=== PATIENT | female | born 1955 | race African-American/Black ===

== ENCOUNTER 2021-08-16 03:39 | Inpatient (IN) | payer MEDICAID ==
[~2021-08-16] VITALS: Ht 170.2 cm; Wt 108.9 kg
[2021-08-16 06:03] LABS: BASOPHILS % 0.9 % (0.0-2.0); EOSINOPHILS % 0.8 % (0.0-5.0); HEMATOCRIT. 36.8 % (36.0-48.0); LYMPHOCYTES % 26.5 % (20.0-50.0); MEAN CORPUSCULAR HEMOGLOBIN 27.6 pg (28.0-32.0); MEAN CORPUSCULAR VOLUME 84.7 fL (81.0-99.0); MEAN PLATELET VOLUME 8.1 fl (7.4-10.4); NEUTROPHILS % 66.8 % (40.0-76.0); PLATELET 487 x1000/uL (130-400); RED BLOOD CELL COUNT 4.34 mill/uL (4.2-5.4)
[2021-08-16 06:08] LABS: CHLORIDE 101 mEq/L (98-107)
[2021-08-16] MEDS ORDERED: MORPHINE SULFATE 10 MG/ML CPJ IV ONE ×2 (08:30→09:00)
[2021-08-16] MEDS ORDERED: MORPHINE SULFATE 10 MG/ML CPJ IV SCH (09:00)
[2021-08-16] MEDS ORDERED: SULFAMETHOXAZOLE/TRIMETHOPRIM 800/160MG TABLET PO ONE (11:15)
[2021-08-16] MEDS ORDERED: HYDROCODONE/ACETAMINOPHEN 5/325MG TABLET PO ONE (12:00)
[2021-08-16] MEDS ORDERED: NALOXONE HCL 0.4MG/ML VIAL IV PRN (20:00)
[2021-08-16] MEDS ORDERED: MORPHINE SULFATE 2 MG/ML CPJ (NOT FOR IM USE) IV PRN (20:00)
[2021-08-17] VITALS: BP_SYST 169; BP_DIAS 76; BP_DIAS 79
[2021-08-17 04:00] VITALS: BP 152/67
[2021-08-17] MEDS ORDERED: HYDROCODONE/ACETAMINOPHEN 5/325MG TABLET PO PRN (05:15)
[2021-08-17] MEDS ORDERED: ONDANSETRON HCL 4MG/2ML INJ IV PRN (05:15)
[2021-08-17] MEDS ORDERED: DEXTROSE 50% WATER 50ML SYRINGE IV PRN (05:15)
[2021-08-17] MEDS: MORPHINE SULFATE 2 MG/ML CPJ (NOT FOR IM USE) IV PRN ×4 (06:12→21:45)
[2021-08-17] MEDS: BLOOD SUGAR DIAGNOSTIC STRIP TEST SCH ×4 (06:12→21:58)
[2021-08-17] MEDS ORDERED: SULF-299 PO (06:52)
[2021-08-17] MEDS ORDERED: AMLO10TA80 PO (06:52)
[2021-08-17] MEDS ORDERED: ARIP15TA14 PO (06:52)
[2021-08-17] MEDS ORDERED: LIRA0.6P2 SUBCUT (06:52)
[2021-08-17] MEDS ORDERED: INSU100I24 SUBCUT (06:52)
[2021-08-17] MEDS ORDERED: LEVO150T8 PO (06:52)
[2021-08-17] MEDS ORDERED: METO-396 PO (06:52)
[2021-08-17] MEDS ORDERED: GABA800T97 PO (06:52)
[2021-08-17] MEDS ORDERED: ATOR40TA70 PO (06:52)
[2021-08-17 06:57] LABS: HEMATOCRIT 30.9 % (36.0-48.0); HEMOGLOBIN 10.1 g/dL (12.0-16.0); MEAN CORPUSCULAR HEMOGLOBIN 27.6 pg (28.0-32.0); MEAN CORPUSCULAR VOLUME 84.5 fL (81.0-99.0); PLATELET 385 x1000/uL (130-400); RED BLOOD CELL COUNT 3.66 mill/uL (4.2-5.4); RED CELL DISTRIBUTION WIDTH 15.7 % (11.6-14.6)
[2021-08-17 07:14] LABS: CHLORIDE 105 mEq/L (98-107)
[2021-08-17 08:00] VITALS: BP 145/75
[2021-08-17] MEDS: INSULIN LISPRO 100 UNITS/ML SUBCUT SCH ×4 (11:09→22:08)
[2021-08-17 12:00] VITALS: BP 168/76
[2021-08-17] MEDS: GABAPENTIN 300MG CAPSULE PO SCH ×2 (14:07→22:09)
[2021-08-17] MEDS: HYDROCODONE/ACETAMINOPHEN 10/325MG TABLET PO PRN ×2 (14:08→20:24)
[2021-08-17] MEDS: AMLODIPINE 10MG TABLET PO SCH (14:09)
[2021-08-17] MEDS: ARIPIPRAZOLE 5MG TABLET PO SCH (14:26)
[2021-08-17] MEDS: LEVOTHYROXINE SODIUM 150MCG TABLET PO SCH (15:00)
[2021-08-17 16:00] VITALS: BP 147/56
[2021-08-17 20:00] VITALS: BP 158/81
[2021-08-17] MEDS: ATORVASTATIN CALCIUM 40MG TABLET PO SCH (20:24)
[2021-08-17] MEDS: METOPROLOL TARTRATE 25MG TABLET PO SCH ×2 (21:00→21:57)
[2021-08-18] VITALS: BP 103/54
[2021-08-18 04:00] VITALS: BP 131/68
[2021-08-18] MEDS: GABAPENTIN 300MG CAPSULE PO SCH ×3 (06:15→21:23)
[2021-08-18] MEDS: HYDROCODONE/ACETAMINOPHEN 10/325MG TABLET PO PRN ×2 (06:28→12:59)
[2021-08-18] MEDS: BLOOD SUGAR DIAGNOSTIC STRIP TEST SCH ×4 (06:29→21:42)
[2021-08-18] MEDS: INSULIN LISPRO 100 UNITS/ML SUBCUT SCH ×4 (06:29→21:52)
[2021-08-18] MEDS: LEVOTHYROXINE SODIUM 150MCG TABLET PO SCH (06:31)
[2021-08-18 08:00] VITALS: BP 136/73
[2021-08-18] MEDS: POLYETHYLENE GLYCOL 3350 (17GM) 1 DOSE PACK PO SCH (08:48)
[2021-08-18] MEDS: DOCUSATE SODIUM 100MG CAPSULE PO SCH (08:58)
[2021-08-18] MEDS: ARIPIPRAZOLE 5MG TABLET PO SCH (08:58)
[2021-08-18] MEDS: METOPROLOL TARTRATE 25MG TABLET PO SCH ×2 (09:01→21:23)
[2021-08-18] MEDS: AMLODIPINE 10MG TABLET PO SCH (09:02)
[2021-08-18 09:28] LABS: CLARITY URINE CLEAR (CLEAR); COLOR URINE YELLOW (YELLOW); KETONES URINE NEGATIVE (NEGATIVE); LEUKOCYTE ESTERASE URINE NEGATIVE (NEGATIVE); NITRITE URINE NEGATIVE (NEGATIVE); OCCULT BLOOD URINE NEGATIVE (NEGATIVE); PH URINE 5.5 (4.5-8.0); PROTEIN URINE 3+ (NEGATIVE); SPECIFIC GRAVITY URINE 1.011 (1.005-1.030); UROBILINOGEN URINE 0.2 E.U./dL (0.2-1.0)
[2021-08-18] MEDS: MORPHINE SULFATE 2 MG/ML CPJ (NOT FOR IM USE) IV PRN ×3 (11:33→21:26)
[2021-08-18 12:00] VITALS: BP 133/70
[2021-08-18] MEDS ORDERED: OXYB5TAB17 PO (15:41)
[2021-08-18 16:00] VITALS: BP 165/78
[2021-08-18 16:15] LABS: PROTHROMBIN TIME 10.4 sec (9.6-11.0)
[2021-08-18] MEDS ORDERED: REGADENOSON 0.4 MG/5 ML IV NR (17:00)
[2021-08-18] MEDS ORDERED: IPRATROPIUM/ALBUTEROL 0.5-3(2.5)MG/3ML NEB HHN PRN (17:30)
[2021-08-18 20:00] VITALS: BP 169/69
[2021-08-18] MEDS: ATORVASTATIN CALCIUM 40MG TABLET PO SCH (21:23)
[2021-08-18] MEDS: INSULIN GLARGINE 100 UNITS/ML SUBCUT SCH (23:49)
[2021-08-19] VITALS: BP 145/60
[2021-08-19] MEDS: MORPHINE SULFATE 2 MG/ML CPJ (NOT FOR IM USE) IV PRN ×2 (02:03→22:09)
[2021-08-19 04:00] VITALS: BP 145/84
[2021-08-19] MEDS: GABAPENTIN 300MG CAPSULE PO SCH ×3 (06:41→21:59)
[2021-08-19] MEDS: LEVOTHYROXINE SODIUM 150MCG TABLET PO SCH (06:45)
[2021-08-19] MEDS: HYDROCODONE/ACETAMINOPHEN 10/325MG TABLET PO PRN ×2 (06:46→15:30)
[2021-08-19 06:53] LABS: BASOPHILS % 0.4 % (0.0-2.0); EOSINOPHILS % 4.5 % (0.0-5.0); HEMOGLOBIN. 9.8 g/dL (12.0-16.0); LYMPHOCYTES % 36.4 % (20.0-50.0); MEAN CORPUSCULAR HEMOGLOBIN 27.6 pg (28.0-32.0); MEAN CORPUSCULAR VOLUME 84.1 fL (81.0-99.0); MEAN PLATELET VOLUME 7.7 fl (7.4-10.4); NEUTROPHILS % 49.7 % (40.0-76.0); PLATELET 385 x1000/uL (130-400); RED BLOOD CELL COUNT 3.56 mill/uL (4.2-5.4); RED CELL DISTRIBUTION WIDTH 15.1 % (11.6-14.6)
[2021-08-19] MEDS: BLOOD SUGAR DIAGNOSTIC STRIP TEST SCH ×4 (07:00→21:37)
[2021-08-19] MEDS: INSULIN LISPRO 100 UNITS/ML SUBCUT SCH ×3 (07:50→22:02)
[2021-08-19 08:00] VITALS: BP 180/82
[2021-08-19] MEDS: ARIPIPRAZOLE 5MG TABLET PO SCH (08:41)
[2021-08-19] MEDS: METOPROLOL TARTRATE 25MG TABLET PO SCH ×2 (08:42→22:00)
[2021-08-19] MEDS: AMLODIPINE 10MG TABLET PO SCH (08:54)
[2021-08-19] MEDS: POLYETHYLENE GLYCOL 3350 (17GM) 1 DOSE PACK PO SCH (09:00)
[2021-08-19] MEDS: DOCUSATE SODIUM 100MG CAPSULE PO SCH (09:00)
[2021-08-19 09:13] LABS: BG CARBOXYHEMOGLOBIN 0.1 % (0.5-1.5); BG DEOXYHEMOGLOBIN 4.5 % (0.0-5.0); BG FRACTION INSPIRED OXYGEN 21; BG HCO3 ACT 25.4 mmol/L (22.0-26.0); BG METHEMOGLOBIN 0.2 % (0.0-1.5); BG OXYGEN SATURATION 95.5 % (92.0-98.5); BG OXYHEMOGLOBIN 95.2 % (94.0-97.0); BG PCO2 39.5 mmHg (35.0-45.0); BG PH 7.426 (7.350-7.450); BG PO2 77.9 mmHg (75.0-100.0); BG SAMPLE SITE RIGHT RADIAL; BG TOTAL HEMOGLOBIN 10.4 g/dL (12.0-18.0); BG VENT MODE ROOM AIR
[2021-08-19] MEDS: CLONIDINE 0.1MG TABLET PO PRN (16:12)
[2021-08-19 16:13] VITALS: BP 177/72
[2021-08-19 20:00] VITALS: BP 148/62
[2021-08-19] MEDS: ATORVASTATIN CALCIUM 40MG TABLET PO SCH (21:59)
[2021-08-19] MEDS: INSULIN GLARGINE 100 UNITS/ML SUBCUT SCH (22:03)
[2021-08-20] VITALS (27 sets, daily range): BP systolic 114–181; BP diastolic 51–83
[2021-08-20] MEDS: LEVOTHYROXINE SODIUM 150MCG TABLET PO SCH (06:18)
[2021-08-20] MEDS: GABAPENTIN 300MG CAPSULE PO SCH ×3 (06:18→20:52)
[2021-08-20] MEDS: MORPHINE SULFATE 2 MG/ML CPJ (NOT FOR IM USE) IV PRN ×2 (06:29→12:23)
[2021-08-20] MEDS: BLOOD SUGAR DIAGNOSTIC STRIP TEST SCH ×4 (07:01→23:12)
[2021-08-20] MEDS: METOPROLOL TARTRATE 25MG TABLET PO SCH ×2 (08:42→20:52)
[2021-08-20] MEDS: AMLODIPINE 10MG TABLET PO SCH (08:42)
[2021-08-20] MEDS: POLYETHYLENE GLYCOL 3350 (17GM) 1 DOSE PACK PO SCH (08:43)
[2021-08-20] MEDS: DOCUSATE SODIUM 100MG CAPSULE PO SCH (08:43)
[2021-08-20] MEDS: ARIPIPRAZOLE 5MG TABLET PO SCH (09:00)
[2021-08-20 12:05] LABS: BASOPHILS % 0.7 % (0.0-2.0); EOSINOPHILS % 3.5 % (0.0-5.0); HEMATOCRIT. 29.5 % (36.0-48.0); HEMOGLOBIN. 9.6 g/dL (12.0-16.0); LYMPHOCYTES % 35.4 % (20.0-50.0); MEAN CORPUSCULAR HEMOGLOBIN 27.4 pg (28.0-32.0); MEAN CORPUSCULAR VOLUME 84.2 fL (81.0-99.0); MEAN PLATELET VOLUME 8.1 fl (7.4-10.4); MONOCYTES % 8.5 % (2.0-8.0); NEUTROPHILS % 51.9 % (40.0-76.0); PLATELET 359 x1000/uL (130-400); RED BLOOD CELL COUNT 3.51 mill/uL (4.2-5.4); RED CELL DISTRIBUTION WIDTH 15.4 % (11.6-14.6)
[2021-08-20] MEDS ORDERED: THROMBIN (BOVINE) 5000 UNITS/VIAL TOP ONE (13:06)
[2021-08-20] MEDS ORDERED: LIDOCAINE HCL/EPINEPHRINE 1%-EPI 1:100,000 20 ML VIAL ONE (13:07)
[2021-08-20] MEDS ORDERED: GENTAMICIN SULF 40MG/ML 2ML VIAL ONE (13:07)
[2021-08-20] MEDS ORDERED: SUCCINYLCHOLINE CHLORIDE 200MG/10ML IV ONE (13:50)
[2021-08-20] MEDS ORDERED: ROCURONIUM BROMIDE 10MG/ML VIAL 5ML IV ONE ×2 (13:50→15:04)
[2021-08-20] MEDS ORDERED: DEXAMETHASONE 4MG/ML 1ML VIAL ONE (13:50)
[2021-08-20] MEDS ORDERED: CEFAZOLIN SODIUM 1000MG/VIAL ONE (13:50)
[2021-08-20] MEDS ORDERED: ONDANSETRON HCL 4MG/2ML INJ ONE (13:50)
[2021-08-20] MEDS ORDERED: LIDOCAINE HCL 1% 10 MG/ML 10ML VIAL ONE (13:50)
[2021-08-20] MEDS ORDERED: NEOSTIGMINE METHYLSULFATE 1MG/ML 10 ML VIAL ONE (13:51)
[2021-08-20] MEDS ORDERED: GLYCOPYRROLATE 0.2 MG/ML 2ML VIAL ONE ×2 (13:51)
[2021-08-20] MEDS ORDERED: PROPOFOL 200MG/20ML VIAL IV ONE (13:51)
[2021-08-20] MEDS ORDERED: MIDAZOLAM HCL 2 MG/2 ML VIAL ONE (13:52)
[2021-08-20] MEDS ORDERED: FENTANYL CITRATE/PF 50MCG/ML 2ML VIAL ONE (13:52)
[2021-08-20] MEDS ORDERED: CLINDAMYCIN 900 MG PREMIX 50 ML IV ONE (14:18)
[2021-08-20] MEDS ORDERED: METOPROLOL TARTRATE 5MG/5ML VIAL IV ONE (16:16)
[2021-08-20] MEDS ORDERED: HYDRALAZINE 20MG/ML VIAL ONE (16:16)
[2021-08-20] MEDS: MORPHINE SULFATE 4 MG/ML CPJ (NOT FOR IM USE) IV PRN ×4 (17:02→23:35)
[2021-08-20] MEDS: NICARDIPINE 100 MG in SODIUM CHLORIDE 0.9% 60 ML IV PRN (17:02)
[2021-08-20] MEDS: DEXT 5%/LACTATED RINGERS 1,000 ML IV SCH (17:02)
[2021-08-20] MEDS: CLINDAMYCIN 300 MG in DEXTROSE 5% WATER 50 ML IV SCH (17:04)
[2021-08-20] MEDS: DEXAMETHASONE 4MG/ML 1ML VIAL IV SCH ×2 (17:20→23:35)
[2021-08-20] MEDS: INSULIN LISPRO 100 UNITS/ML SUBCUT SCH ×2 (17:42→23:37)
[2021-08-20] MEDS ORDERED: LABETALOL 5MG/ML SYR 20 MG/4 ML SYRINGE IV PRN ×2 (19:30→19:45)
[2021-08-20] MEDS: ATORVASTATIN CALCIUM 40MG TABLET PO SCH (20:52)
[2021-08-20] MEDS: INSULIN GLARGINE 100 UNITS/ML SUBCUT SCH (21:10)
[2021-08-21] VITALS (95 sets, daily range): BP systolic 64–160; BP diastolic 32–85
[2021-08-21] MEDS: NICARDIPINE 100 MG in SODIUM CHLORIDE 0.9% 60 ML IV PRN ×4 (00:03→21:24)
[2021-08-21] MEDS: CLINDAMYCIN 300 MG in DEXTROSE 5% WATER 50 ML IV SCH ×3 (01:17→17:38)
[2021-08-21] MEDS: MORPHINE SULFATE 4 MG/ML CPJ (NOT FOR IM USE) IV PRN ×6 (02:20→22:25)
[2021-08-21] MEDS: BLOOD SUGAR DIAGNOSTIC STRIP TEST SCH ×3 (05:18→17:34)
[2021-08-21] MEDS: DEXAMETHASONE 4MG/ML 1ML VIAL IV SCH ×3 (05:35→17:38)
[2021-08-21] MEDS: INSULIN LISPRO 100 UNITS/ML SUBCUT SCH ×6 (05:35→23:55)
[2021-08-21] MEDS: GABAPENTIN 300MG CAPSULE PO SCH ×4 (06:00→21:41)
[2021-08-21] MEDS: LEVOTHYROXINE SODIUM 150MCG TABLET PO SCH (06:13)
[2021-08-21] MEDS: DEXT 5%/LACTATED RINGERS 1,000 ML IV SCH ×3 (08:20→21:43)
[2021-08-21] MEDS: ARIPIPRAZOLE 5MG TABLET PO SCH (09:00)
[2021-08-21] MEDS: AMLODIPINE 10MG TABLET PO SCH (09:00)
[2021-08-21] MEDS: DOCUSATE SODIUM 100MG CAPSULE PO SCH (09:00)
[2021-08-21] MEDS: METOPROLOL TARTRATE 25MG TABLET PO SCH ×2 (09:00→21:42)
[2021-08-21] MEDS: POLYETHYLENE GLYCOL 3350 (17GM) 1 DOSE PACK PO SCH (09:00)
[2021-08-21] MEDS ORDERED: BISACODYL 5MG TABLET PO PRN (09:15)
[2021-08-21] MEDS: HYDRALAZINE 20MG/ML VIAL IV PRN (11:27)
[2021-08-21] MEDS: INSULIN GLARGINE 100 UNITS/ML SUBCUT SCH ×2 (12:24→21:58)
[2021-08-21] MEDS: HYDROCODONE/ACETAMINOPHEN 10/325MG TABLET PO PRN (13:57)
[2021-08-21] MEDS: CARVEDILOL 6.25 MG TABLET PO SCH ×2 (13:58→21:42)
[2021-08-21] MEDS: ATORVASTATIN CALCIUM 40MG TABLET PO SCH (21:41)
[2021-08-22] VITALS (82 sets, daily range): BP systolic 75–197; BP diastolic 38–180
[2021-08-22] MEDS: BLOOD SUGAR DIAGNOSTIC STRIP TEST SCH ×5 (00:14→23:55)
[2021-08-22] MEDS: CLINDAMYCIN 300 MG in DEXTROSE 5% WATER 50 ML IV SCH ×3 (00:22→17:53)
[2021-08-22] MEDS: LEVOTHYROXINE SODIUM 150MCG TABLET PO SCH (05:34)
[2021-08-22] MEDS: GABAPENTIN 300MG CAPSULE PO SCH ×3 (05:35→21:49)
[2021-08-22 05:37] LABS: HEMATOCRIT. 28.7 % (36.0-48.0); HEMOGLOBIN. 9.4 g/dL (12.0-16.0); MEAN CORPUSCULAR HEMOGLOBIN 27.9 pg (28.0-32.0); MEAN CORPUSCULAR VOLUME 84.8 fL (81.0-99.0); MEAN PLATELET VOLUME 8.6 fl (7.4-10.4); PLATELET 360 x1000/uL (130-400); RED BLOOD CELL COUNT 3.38 mill/uL (4.2-5.4); RED CELL DISTRIBUTION WIDTH 15.5 % (11.6-14.6)
[2021-08-22] MEDS: INSULIN LISPRO 100 UNITS/ML SUBCUT SCH ×8 (06:01→23:58)
[2021-08-22] MEDS: MORPHINE SULFATE 4 MG/ML CPJ (NOT FOR IM USE) IV PRN ×5 (06:43→22:50)
[2021-08-22] MEDS: HYDRALAZINE 20MG/ML VIAL IV PRN (06:44)
[2021-08-22] MEDS: NICARDIPINE 100 MG in SODIUM CHLORIDE 0.9% 60 ML IV PRN (07:15)
[2021-08-22] MEDS: DEXT 5%/LACTATED RINGERS 1,000 ML IV SCH ×2 (08:42→17:55)
[2021-08-22] MEDS: AMLODIPINE 10MG TABLET PO SCH (08:43)
[2021-08-22] MEDS: DOCUSATE SODIUM 100MG CAPSULE PO SCH (08:43)
[2021-08-22] MEDS: CARVEDILOL 6.25 MG TABLET PO SCH ×2 (08:43→21:50)
[2021-08-22] MEDS: ARIPIPRAZOLE 5MG TABLET PO SCH (08:44)
[2021-08-22] MEDS: METOPROLOL TARTRATE 25MG TABLET PO SCH ×2 (08:44→21:51)
[2021-08-22] MEDS: POLYETHYLENE GLYCOL 3350 (17GM) 1 DOSE PACK PO SCH (11:29)
[2021-08-22] MEDS: INSULIN GLARGINE 100 UNITS/ML SUBCUT SCH ×2 (11:30→23:58)
[2021-08-22 11:32] LABS: PLATELET ESTIMATE NORMAL
[2021-08-22] MEDS: ATORVASTATIN CALCIUM 40MG TABLET PO SCH (21:49)
[2021-08-23] VITALS: BP 117/51
[2021-08-23 04:00] VITALS: BP 122/62
[2021-08-23] MEDS: DEXT 5%/LACTATED RINGERS 1,000 ML IV SCH ×2 (04:40→13:14)
[2021-08-23] MEDS: MORPHINE SULFATE 4 MG/ML CPJ (NOT FOR IM USE) IV PRN ×5 (04:42→21:40)
[2021-08-23] MEDS: GABAPENTIN 300MG CAPSULE PO SCH ×3 (06:03→21:08)
[2021-08-23] MEDS: LEVOTHYROXINE SODIUM 150MCG TABLET PO SCH (06:04)
[2021-08-23] MEDS: BLOOD SUGAR DIAGNOSTIC STRIP TEST SCH ×3 (06:04→17:10)
[2021-08-23] MEDS: INSULIN LISPRO 100 UNITS/ML SUBCUT SCH ×6 (06:05→17:28)
[2021-08-23 08:00] VITALS: BP 122/56
[2021-08-23 08:18] LABS: BASOPHILS % 0.3 % (0.0-2.0); HEMATOCRIT. 26.4 % (36.0-48.0); MEAN CORPUSCULAR HEMOGLOBIN 26.6 pg (28.0-32.0); MEAN CORPUSCULAR VOLUME 87.6 fL (81.0-99.0); MEAN PLATELET VOLUME 8.9 fl (7.4-10.4); MONOCYTES % 4.9 % (2.0-8.0); NEUTROPHILS % 80.8 % (40.0-76.0); PLATELET 57 x1000/uL (130-400); RED BLOOD CELL COUNT 3.01 mill/uL (4.2-5.4); RED CELL DISTRIBUTION WIDTH 15.6 % (11.6-14.6)
[2021-08-23] MEDS: INSULIN GLARGINE 100 UNITS/ML SUBCUT SCH ×2 (09:31→21:12)
[2021-08-23] MEDS: METOPROLOL TARTRATE 25MG TABLET PO SCH ×2 (09:33→20:50)
[2021-08-23] MEDS: DOCUSATE SODIUM 100MG CAPSULE PO SCH (09:33)
[2021-08-23] MEDS: AMLODIPINE 10MG TABLET PO SCH (09:33)
[2021-08-23] MEDS: CARVEDILOL 6.25 MG TABLET PO SCH ×2 (09:34→20:50)
[2021-08-23] MEDS: ARIPIPRAZOLE 5MG TABLET PO SCH (09:34)
[2021-08-23] MEDS: POLYETHYLENE GLYCOL 3350 (17GM) 1 DOSE PACK PO SCH (09:36)
[2021-08-23 12:00] VITALS: BP 124/55
[2021-08-23 16:00] VITALS: BP 142/57
[2021-08-23 20:00] VITALS: BP 130/80
[2021-08-23] MEDS: ATORVASTATIN CALCIUM 40MG TABLET PO SCH (20:50)
[2021-08-23] MEDS ORDERED: HYDRALAZINE 10 MG in SODIUM CHLORIDE 0.9% 49.5 ML IV PRN (23:30)
[2021-08-24] VITALS: BP 157/68
[2021-08-24] MEDS: INSULIN LISPRO 100 UNITS/ML SUBCUT SCH ×8 (00:02→18:27)
[2021-08-24] MEDS: BLOOD SUGAR DIAGNOSTIC STRIP TEST SCH ×4 (00:03→18:27)
[2021-08-24] MEDS: DEXT 5%/LACTATED RINGERS 1,000 ML IV SCH ×3 (00:15→20:15)
[2021-08-24] MEDS: MORPHINE SULFATE 4 MG/ML CPJ (NOT FOR IM USE) IV PRN (00:31)
[2021-08-24 04:00] VITALS: BP 141/64
[2021-08-24] MEDS: GABAPENTIN 300MG CAPSULE PO SCH ×3 (05:59→23:47)
[2021-08-24] MEDS: LEVOTHYROXINE SODIUM 150MCG TABLET PO SCH (06:33)
[2021-08-24 08:00] VITALS: BP 171/91
[2021-08-24] MEDS ORDERED: HYDROCODONE/ACETAMINOPHEN 5/325MG TABLET PO PRN (08:30)
[2021-08-24] MEDS: POLYETHYLENE GLYCOL 3350 (17GM) 1 DOSE PACK PO SCH (09:00)
[2021-08-24] MEDS ORDERED: MORPHINE SULFATE 4 MG/ML CPJ (NOT FOR IM USE) IV PRN ×2 (09:00→11:45)
[2021-08-24] MEDS: AMLODIPINE 10MG TABLET PO SCH ×2 (09:26→18:11)
[2021-08-24] MEDS: DOCUSATE SODIUM 100MG CAPSULE PO SCH (09:26)
[2021-08-24] MEDS: METOPROLOL TARTRATE 25MG TABLET PO SCH (09:27)
[2021-08-24] MEDS: ARIPIPRAZOLE 5MG TABLET PO SCH (09:28)
[2021-08-24] MEDS: CARVEDILOL 6.25 MG TABLET PO SCH ×2 (09:28→23:46)
[2021-08-24] MEDS: INSULIN GLARGINE 100 UNITS/ML SUBCUT SCH ×2 (09:42→23:59)
[2021-08-24] MEDS: HYDROCODONE/ACETAMINOPHEN 10/325MG TABLET PO PRN ×2 (11:07→23:49)
[2021-08-24] MEDS ORDERED: NALOXONE HCL 0.4 MG/ML 1ML VIAL IV PRN (11:45)
[2021-08-24] MEDS ORDERED: TRAMADOL 50MG TABLET PO PRN (11:45)
[2021-08-24 16:00] VITALS: BP 153/86
[2021-08-24] MEDS: HYDRALAZINE HCL 25MG TABLET PO SCH ×2 (18:11→23:47)
[2021-08-24] MEDS: MORPHINE SULFATE 2 MG/ML CPJ (NOT FOR IM USE) IV PRN (18:12)
[2021-08-24 20:00] VITALS: BP 163/73
[2021-08-24] MEDS: ATORVASTATIN CALCIUM 40MG TABLET PO SCH (23:46)
[2021-08-25] VITALS: BP 176/84
[2021-08-25] MEDS: MORPHINE SULFATE 2 MG/ML CPJ (NOT FOR IM USE) IV PRN ×5 (00:14→21:47)
[2021-08-25] MEDS: HYDROCODONE/ACETAMINOPHEN 10/325MG TABLET PO PRN ×2 (01:23→08:40)
[2021-08-25 04:00] VITALS: BP 126/75
[2021-08-25] MEDS: HYDRALAZINE HCL 25MG TABLET PO SCH ×3 (05:31→21:48)
[2021-08-25] MEDS: BLOOD SUGAR DIAGNOSTIC STRIP TEST SCH ×5 (05:31→21:00)
[2021-08-25] MEDS: GABAPENTIN 300MG CAPSULE PO SCH ×3 (05:31→21:47)
[2021-08-25] MEDS: INSULIN LISPRO 100 UNITS/ML SUBCUT SCH ×10 (06:00→21:00)
[2021-08-25] MEDS: DEXT 5%/LACTATED RINGERS 1,000 ML IV SCH (07:05)
[2021-08-25] MEDS: DOCUSATE SODIUM 100MG CAPSULE PO SCH (07:59)
[2021-08-25] MEDS: AMLODIPINE 10MG TABLET PO SCH ×2 (07:59→17:10)
[2021-08-25] MEDS: LEVOTHYROXINE SODIUM 150MCG TABLET PO SCH (07:59)
[2021-08-25 08:00] VITALS: BP 175/69
[2021-08-25] MEDS: POLYETHYLENE GLYCOL 3350 (17GM) 1 DOSE PACK PO SCH (08:00)
[2021-08-25] MEDS: CARVEDILOL 6.25 MG TABLET PO SCH ×2 (08:00→21:48)
[2021-08-25] MEDS: ARIPIPRAZOLE 5MG TABLET PO SCH (08:00)
[2021-08-25] MEDS: INSULIN GLARGINE 100 UNITS/ML SUBCUT SCH ×2 (09:09→22:27)
[2021-08-25 12:00] VITALS: BP 183/78
[2021-08-25] MEDS: CLONIDINE 0.1MG TABLET PO PRN (14:16)
[2021-08-25 16:00] VITALS: BP 144/71
[2021-08-25 16:39] LABS: HEMOGLOBIN 9.5 g/dL (12.0-16.0); MEAN CORPUSCULAR HEMOGLOBIN 27.4 pg (28.0-32.0); MEAN CORPUSCULAR VOLUME 83.5 fL (81.0-99.0); PLATELET 361 x1000/uL (130-400); RED BLOOD CELL COUNT 3.48 mill/uL (4.2-5.4); RED CELL DISTRIBUTION WIDTH 15.3 % (11.6-14.6)
[2021-08-25 20:00] VITALS: BP 180/79
[2021-08-25] MEDS: ATORVASTATIN CALCIUM 40MG TABLET PO SCH (21:48)
[2021-08-26] VITALS: BP 143/51
[2021-08-26 04:00] VITALS: BP 154/59
[2021-08-26] MEDS: INSULIN LISPRO 100 UNITS/ML SUBCUT SCH ×8 (06:00→21:57)
[2021-08-26] MEDS: HYDRALAZINE HCL 25MG TABLET PO SCH ×3 (06:19→23:55)
[2021-08-26] MEDS: GABAPENTIN 300MG CAPSULE PO SCH ×3 (06:19→23:52)
[2021-08-26] MEDS: MORPHINE SULFATE 2 MG/ML CPJ (NOT FOR IM USE) IV PRN ×4 (06:19→21:49)
[2021-08-26] MEDS: LEVOTHYROXINE SODIUM 150MCG TABLET PO SCH (06:20)
[2021-08-26] MEDS: BLOOD SUGAR DIAGNOSTIC STRIP TEST SCH ×4 (06:45→21:00)
[2021-08-26 08:00] VITALS: BP 144/67
[2021-08-26] MEDS: ARIPIPRAZOLE 5MG TABLET PO SCH (08:25)
[2021-08-26] MEDS: DOCUSATE SODIUM 100MG CAPSULE PO SCH (08:25)
[2021-08-26] MEDS: CARVEDILOL 6.25 MG TABLET PO SCH ×2 (08:25→21:50)
[2021-08-26] MEDS: AMLODIPINE 10MG TABLET PO SCH ×2 (08:26→16:22)
[2021-08-26] MEDS: POLYETHYLENE GLYCOL 3350 (17GM) 1 DOSE PACK PO SCH (08:26)
[2021-08-26] MEDS ORDERED: ACETAMINOPHEN 325MG TABLET PO PRN (08:30)
[2021-08-26] MEDS: INSULIN GLARGINE 100 UNITS/ML SUBCUT SCH (10:46)
[2021-08-26 12:00] VITALS: BP 130/64
[2021-08-26 12:08] LABS: BASOPHILS % 0.5 % (0.0-2.0); EOSINOPHILS % 1.5 % (0.0-5.0); HEMATOCRIT. 29.7 % (36.0-48.0); HEMOGLOBIN. 9.6 g/dL (12.0-16.0); LYMPHOCYTES % 16.5 % (20.0-50.0); MEAN CORPUSCULAR HEMOGLOBIN 27.3 pg (28.0-32.0); MEAN CORPUSCULAR VOLUME 84.5 fL (81.0-99.0); MEAN PLATELET VOLUME 8.6 fl (7.4-10.4); NEUTROPHILS % 72.5 % (40.0-76.0); PLATELET 344 x1000/uL (130-400); RED BLOOD CELL COUNT 3.51 mill/uL (4.2-5.4)
[2021-08-26 12:28] LABS: CHLORIDE 101 mEq/L (98-107)
[2021-08-26 15:06] LABS: CLARITY URINE CLEAR (CLEAR); COLOR URINE YELLOW (YELLOW); KETONES URINE NEGATIVE (NEGATIVE); LEUKOCYTE ESTERASE URINE NEGATIVE (NEGATIVE); NITRITE URINE NEGATIVE (NEGATIVE); OCCULT BLOOD URINE NEGATIVE (NEGATIVE); PH URINE 7.5 (4.5-8.0); PROTEIN URINE 2+ (NEGATIVE); UROBILINOGEN URINE 0.2 E.U./dL (0.2-1.0)
[2021-08-26 16:00] VITALS: BP 125/74
[2021-08-26] MEDS: HYDROCODONE/ACETAMINOPHEN 10/325MG TABLET PO PRN (18:20)
[2021-08-26] MEDS: ATORVASTATIN CALCIUM 40MG TABLET PO SCH (21:49)
[2021-08-27] VITALS: BP 127/60
[2021-08-27] MEDS: INSULIN GLARGINE 100 UNITS/ML SUBCUT SCH ×2 (00:28→09:44)
[2021-08-27] MEDS: INSULIN LISPRO 100 UNITS/ML SUBCUT SCH ×7 (01:00→18:20)
[2021-08-27] MEDS: HYDROCODONE/ACETAMINOPHEN 10/325MG TABLET PO PRN ×3 (01:29→14:02)
[2021-08-27] MEDS: LEVOTHYROXINE SODIUM 150MCG TABLET PO SCH (06:55)
[2021-08-27] MEDS: GABAPENTIN 300MG CAPSULE PO SCH ×2 (06:55→14:02)
[2021-08-27] MEDS: HYDRALAZINE HCL 25MG TABLET PO SCH ×2 (06:55→14:02)
[2021-08-27] MEDS: BLOOD SUGAR DIAGNOSTIC STRIP TEST SCH ×3 (07:34→17:27)
[2021-08-27] MEDS: POLYETHYLENE GLYCOL 3350 (17GM) 1 DOSE PACK PO SCH (07:54)
[2021-08-27] MEDS: ARIPIPRAZOLE 5MG TABLET PO SCH (07:55)
[2021-08-27] MEDS: DOCUSATE SODIUM 100MG CAPSULE PO SCH (07:55)
[2021-08-27] MEDS: CARVEDILOL 6.25 MG TABLET PO SCH (07:56)
[2021-08-27] MEDS: AMLODIPINE 10MG TABLET PO SCH ×2 (07:56→17:00)
[2021-08-27 08:00] VITALS: BP 157/58
[2021-08-27 12:00] VITALS: BP 124/51
[2021-08-27 13:07] LABS: BASOPHILS % 0.7 % (0.0-2.0); EOSINOPHILS % 1.9 % (0.0-5.0); HEMATOCRIT. 30.7 % (36.0-48.0); HEMOGLOBIN. 10.1 g/dL (12.0-16.0); LYMPHOCYTES % 19.3 % (20.0-50.0); MEAN CORPUSCULAR HEMOGLOBIN 27.7 pg (28.0-32.0); MEAN CORPUSCULAR VOLUME 84.7 fL (81.0-99.0); MEAN PLATELET VOLUME 8.6 fl (7.4-10.4); MONOCYTES % 9.5 % (2.0-8.0); NEUTROPHILS % 68.6 % (40.0-76.0); PLATELET 371 x1000/uL (130-400); RED BLOOD CELL COUNT 3.63 mill/uL (4.2-5.4); RED CELL DISTRIBUTION WIDTH 15.3 % (11.6-14.6)
[2021-08-27] MEDS ORDERED: LIDOCAINE HCL 1% 10 MG/ML 10ML VIAL ONE (14:27)
[2021-08-27] MEDS: MORPHINE SULFATE 2 MG/ML CPJ (NOT FOR IM USE) IV PRN (17:11)
[2021-08-27 18:37] VITALS: BP 117/52
== END 2021-08-27 19:10 | DRG 321 ==
LOC: ER 04:05 → 6WST 12:16 → ENRESERV 22:29 → 6EST 08-17 12:05 → MICUNO 08-20 16:50 → 6WST 08-22 21:10 → 6EST 08-23 22:25
PROVIDERS: ADMIT Internal Medicine; ATTEND Internal Medicine
PROC: 5A09357 Assistance with Respiratory Ventilation, Less than 24 Consecutive Hours, Continuous Positive Airway Pressure (ICD-10-PCS; 2021-08-18)
PROC: 0RG2071 Fusion of 2 or more Cervical Vertebral Joints with Autologous Tissue Substitute, Posterior Approach, Posterior Column, Open Approach (ICD-10-PCS; principal; 2021-08-20)
PROC: 01N10ZZ Release Cervical Nerve, Open Approach (ICD-10-PCS; 2021-08-20)
PROC: 02HV33Z Insertion of Infusion Device into Superior Vena Cava, Percutaneous Approach (ICD-10-PCS; 2021-08-27)
PROC: B518ZZA Fluoroscopy of Superior Vena Cava, Guidance (ICD-10-PCS; 2021-08-27)
PROC: B548ZZA Ultrasonography of Superior Vena Cava, Guidance (ICD-10-PCS; 2021-08-27)
DX: M48.02 Spinal stenosis, cervical region (principal); G82.50 Quadriplegia, unspecified; S32.10XA Unspecified fracture of sacrum, initial encounter for closed fracture; G99.2 Myelopathy in diseases classified elsewhere; E11.42 Type 2 diabetes mellitus with diabetic polyneuropathy; E11.22 Type 2 diabetes mellitus with diabetic chronic kidney disease; E11.610 Type 2 diabetes mellitus with diabetic neuropathic arthropathy; I50.32 Chronic diastolic (congestive) heart failure; I13.0 Hypertensive heart and chronic kidney disease with heart failure and stage 1 through stage 4 chronic kidney disease, or unspecified chronic kidney disease; S70.01XA Contusion of right hip, initial encounter; D64.9 Anemia, unspecified; E03.9 Hypothyroidism, unspecified; E11.65 Type 2 diabetes mellitus with hyperglycemia; E66.9 Obesity, unspecified; G89.29 Other chronic pain; M77.32 Calcaneal spur, left foot; N18.9 Chronic kidney disease, unspecified; M16.11 Unilateral primary osteoarthritis, right hip; I16.1 Hypertensive emergency; M47.26 Other spondylosis with radiculopathy, lumbar region; M48.061 Spinal stenosis, lumbar region without neurogenic claudication; M81.0 Age-related osteoporosis without current pathological fracture; E78.5 Hyperlipidemia, unspecified; G47.33 Obstructive sleep apnea (adult) (pediatric); J98.11 Atelectasis; E11.51 Type 2 diabetes mellitus with diabetic peripheral angiopathy without gangrene; Y93.01 Activity, walking, marching and hiking; Z20.822 Contact with and (suspected) exposure to COVID-19; W01.0XXA Fall on same level from slipping, tripping and stumbling without subsequent striking against object, initial encounter; I35.0 Nonrheumatic aortic (valve) stenosis; S90.935A Unspecified superficial injury of left lesser toe(s), initial encounter; Y92.090 Kitchen in other non-institutional residence as the place of occurrence of the external cause; Y99.8 Other external cause status; Z82.49 Family history of ischemic heart disease and other diseases of the circulatory system; Z89.422 Acquired absence of other left toe(s); Z79.4 Long term (current) use of insulin; Z88.0 Allergy status to penicillin; Z88.8 Allergy status to other drugs, medicaments and biological substances; Z79.899 Other long term (current) drug therapy; Z68.37 Body mass index [BMI] 37.0-37.9, adult
CPT/HCPCS: 36415; 36573; 36600; 71045; 72040; 72131; 72141; 72148; 73630; 73700; 76000; 78452; 80048; 80053; 81003; 82375; 82805; 82962; 83036; 84145; 85025; 85027; 86850; 86900; 87426; 88304; 88311; 93005; 93017; 93306; 93923; 94660; 95925; 95926; 95928; 95929; 97116; 97162; 97166; 97530; 99291; A9500; C1713; C1725; C1769; J0330; J0360; J0690; J1100; J1580; J1815; J2250; J2270; J2405; J2704; J2710; J2785; J3010; J3490; J7050; J7060; J7121; L0172

== ENCOUNTER 2021-08-27 20:22 | Inpatient (IN) | payer MEDICAID ==
[~2021-08-27] VITALS: Ht 171.4 cm; Wt 102.1 kg
[2021-08-27 20:00] VITALS: BP 162/72
[~2021-08-27 20:22] MED LIST: AMLO10TA80 PO; ARIP15TA14 PO; ATOR40TA70 PO; GABA800T97 PO; INSU100I24 SUBCUT; LEVO150T8 PO; LIRA0.6P2 SUBCUT; METO-396 PO; OXYB5TAB17 PO; SULF-299 PO
[2021-08-27] MEDS ORDERED: ONDANSETRON HCL 4MG/2ML INJ IV PRN (20:45)
[2021-08-27] MEDS ORDERED: CLONIDINE 0.1MG TABLET PO PRN (20:45)
[2021-08-27] MEDS ORDERED: HYDROCODONE/ACETAMINOPHEN 5/325MG TABLET PO PRN (20:45)
[2021-08-27] MEDS ORDERED: BISACODYL 5MG TABLET PO PRN (20:45)
[2021-08-27] MEDS ORDERED: DEXTROSE 50% WATER 50ML SYRINGE IV PRN (20:45)
[2021-08-27] MEDS ORDERED: NALOXONE HCL 0.4 MG/ML 1ML VIAL IV PRN ×2 (20:45)
[2021-08-27] MEDS ORDERED: ACETAMINOPHEN 325MG TABLET PO PRN (20:45)
[2021-08-27] MEDS ORDERED: IPRATROPIUM/ALBUTEROL 0.5-3(2.5)MG/3ML NEB HHN PRN (20:45)
[2021-08-27] MEDS ORDERED: INSULIN LISPRO 100 UNITS/ML SUBCUT SCH (21:00)
[2021-08-27] MEDS: INSULIN LISPRO 100 UNITS/ML SUBCUT SCH ×2 (21:00→23:25)
[2021-08-27] MEDS: GABAPENTIN 300MG CAPSULE PO SCH (21:32)
[2021-08-27] MEDS: CARVEDILOL 6.25 MG TABLET PO SCH (21:32)
[2021-08-27] MEDS: HYDRALAZINE HCL 25MG TABLET PO SCH (21:32)
[2021-08-27] MEDS: ATORVASTATIN CALCIUM 40MG TABLET PO SCH (21:32)
[2021-08-27] MEDS: MORPHINE SULFATE 2 MG/ML CPJ (NOT FOR IM USE) IV PRN (21:33)
[2021-08-27] MEDS: BLOOD SUGAR DIAGNOSTIC STRIP TEST SCH (21:40)
[2021-08-27] MEDS: INSULIN GLARGINE 100 UNITS/ML SUBCUT SCH (21:53)
[2021-08-27 22:45] VITALS: BP 148/68
[2021-08-27] MEDS: HYDRALAZINE 10 MG in SODIUM CHLORIDE 0.9% 49.5 ML IV PRN (23:06)
[2021-08-27] MEDS: HYDROCODONE/ACETAMINOPHEN 10/325MG TABLET PO PRN (23:37)
[2021-08-28] VITALS: BP 134/60
[2021-08-28] MEDS: GABAPENTIN 300MG CAPSULE PO SCH ×3 (05:44→21:29)
[2021-08-28] MEDS: HYDROCODONE/ACETAMINOPHEN 10/325MG TABLET PO PRN ×2 (05:44→15:55)
[2021-08-28] MEDS: HYDRALAZINE HCL 25MG TABLET PO SCH ×3 (05:44→21:28)
[2021-08-28 06:25] LABS: BASOPHILS % 0.6 % (0.0-2.0); EOSINOPHILS % 2.2 % (0.0-5.0); HEMATOCRIT. 26.4 % (36.0-48.0); HEMOGLOBIN. 8.6 g/dL (12.0-16.0); LYMPHOCYTES % 27.5 % (20.0-50.0); MEAN CORPUSCULAR HEMOGLOBIN 27.1 pg (28.0-32.0); MEAN CORPUSCULAR VOLUME 82.9 fL (81.0-99.0); MEAN PLATELET VOLUME 8.1 fl (7.4-10.4); MONOCYTES % 12.7 % (2.0-8.0); PLATELET 361 x1000/uL (130-400); RED BLOOD CELL COUNT 3.18 mill/uL (4.2-5.4); RED CELL DISTRIBUTION WIDTH 14.7 % (11.6-14.6)
[2021-08-28] MEDS: BLOOD SUGAR DIAGNOSTIC STRIP TEST SCH ×4 (06:28→21:29)
[2021-08-28] MEDS: INSULIN LISPRO 100 UNITS/ML SUBCUT SCH ×7 (06:28→21:38)
[2021-08-28] MEDS: LEVOTHYROXINE SODIUM 150MCG TABLET PO SCH (06:36)
[2021-08-28] MEDS: MORPHINE SULFATE 2 MG/ML CPJ (NOT FOR IM USE) IV PRN ×2 (07:18→12:49)
[2021-08-28 07:26] LABS: CHLORIDE 104 mEq/L (98-107)
[2021-08-28 08:00] VITALS: BP 143/60
[2021-08-28] MEDS: TRAMADOL 50MG TABLET PO PRN ×2 (10:15→18:06)
[2021-08-28] MEDS: AMLODIPINE 10MG TABLET PO SCH ×2 (10:15→18:06)
[2021-08-28] MEDS: ARIPIPRAZOLE 5MG TABLET PO SCH (10:15)
[2021-08-28] MEDS: DOCUSATE SODIUM 100MG CAPSULE PO SCH (10:16)
[2021-08-28] MEDS: CARVEDILOL 6.25 MG TABLET PO SCH ×2 (10:16→21:27)
[2021-08-28] MEDS: POLYETHYLENE GLYCOL 3350 (17GM) 1 DOSE PACK PO SCH (10:35)
[2021-08-28] MEDS: INSULIN GLARGINE 100 UNITS/ML SUBCUT SCH ×2 (10:35→23:03)
[2021-08-28 20:00] VITALS: BP 139/58
[2021-08-28] MEDS: ATORVASTATIN CALCIUM 40MG TABLET PO SCH (21:27)
[2021-08-29] MEDS: INSULIN LISPRO 100 UNITS/ML SUBCUT SCH ×8 (00:01→20:39)
[2021-08-29] MEDS: GABAPENTIN 300MG CAPSULE PO SCH ×3 (06:31→22:12)
[2021-08-29] MEDS: HYDRALAZINE HCL 25MG TABLET PO SCH ×3 (06:32→22:21)
[2021-08-29] MEDS: BLOOD SUGAR DIAGNOSTIC STRIP TEST SCH ×4 (06:32→20:17)
[2021-08-29] MEDS: LEVOTHYROXINE SODIUM 150MCG TABLET PO SCH (06:42)
[2021-08-29 07:46] LABS: BASOPHILS % 0.6 % (0.0-2.0); EOSINOPHILS % 2.4 % (0.0-5.0); HEMATOCRIT. 28.2 % (36.0-48.0); HEMOGLOBIN. 9.2 g/dL (12.0-16.0); LYMPHOCYTES % 24.6 % (20.0-50.0); MEAN CORPUSCULAR HEMOGLOBIN 27.3 pg (28.0-32.0); MEAN CORPUSCULAR VOLUME 83.7 fL (81.0-99.0); MEAN PLATELET VOLUME 8.5 fl (7.4-10.4); MONOCYTES % 13.4 % (2.0-8.0); PLATELET 394 x1000/uL (130-400); RED BLOOD CELL COUNT 3.37 mill/uL (4.2-5.4); RED CELL DISTRIBUTION WIDTH 15.1 % (11.6-14.6)
[2021-08-29 08:00] VITALS: BP 183/85
[2021-08-29 08:02] LABS: CHLORIDE 101 mEq/L (98-107)
[2021-08-29 08:17] LABS: TOTAL IRON BINDING CAPACITY 185 ug/dL (250-450)
[2021-08-29 08:37] LABS: FOLIC ACID (FOLATE) SERUM 7.6 ng/mL (>5.38)
[2021-08-29] MEDS: POLYETHYLENE GLYCOL 3350 (17GM) 1 DOSE PACK PO SCH (09:00)
[2021-08-29] MEDS: ARIPIPRAZOLE 5MG TABLET PO SCH (09:09)
[2021-08-29] MEDS: DOCUSATE SODIUM 100MG CAPSULE PO SCH (09:09)
[2021-08-29] MEDS: CARVEDILOL 6.25 MG TABLET PO SCH ×2 (09:09→20:17)
[2021-08-29] MEDS: HYDROCODONE/ACETAMINOPHEN 10/325MG TABLET PO PRN ×2 (09:09→16:42)
[2021-08-29] MEDS: AMLODIPINE 10MG TABLET PO SCH ×2 (09:10→16:41)
[2021-08-29] MEDS: INSULIN GLARGINE 100 UNITS/ML SUBCUT SCH ×2 (09:11→22:19)
[2021-08-29] MEDS: TRAMADOL 50MG TABLET PO PRN (13:21)
[2021-08-29] MEDS: FERROUS SULFATE 325MG TABLET PO SCH (16:41)
[2021-08-29 20:00] VITALS: BP 156/70
[2021-08-29] MEDS: ATORVASTATIN CALCIUM 40MG TABLET PO SCH (20:16)
[2021-08-29] MEDS: MORPHINE SULFATE 2 MG/ML CPJ (NOT FOR IM USE) IV PRN (20:19)
[2021-08-30] MEDS: INSULIN LISPRO 100 UNITS/ML SUBCUT SCH ×8 (01:33→21:00)
[2021-08-30] MEDS: TRAMADOL 50MG TABLET PO PRN ×2 (02:05→14:47)
[2021-08-30] MEDS: GABAPENTIN 300MG CAPSULE PO SCH ×3 (06:22→22:17)
[2021-08-30] MEDS: LEVOTHYROXINE SODIUM 150MCG TABLET PO SCH (06:34)
[2021-08-30] MEDS: HYDRALAZINE HCL 25MG TABLET PO SCH ×3 (06:35→22:00)
[2021-08-30] MEDS: BLOOD SUGAR DIAGNOSTIC STRIP TEST SCH ×4 (06:37→21:12)
[2021-08-30 08:00] VITALS: BP 168/78
[2021-08-30] MEDS: DOCUSATE SODIUM 100MG CAPSULE PO SCH (08:45)
[2021-08-30] MEDS: ASCORBIC ACID 500 MG TABLET PO SCH (08:45)
[2021-08-30] MEDS: MORPHINE SULFATE 2 MG/ML CPJ (NOT FOR IM USE) IV PRN ×2 (08:45→17:25)
[2021-08-30] MEDS: AMLODIPINE 10MG TABLET PO SCH ×2 (08:45→17:23)
[2021-08-30] MEDS: ARIPIPRAZOLE 5MG TABLET PO SCH (08:45)
[2021-08-30] MEDS: POLYETHYLENE GLYCOL 3350 (17GM) 1 DOSE PACK PO SCH (08:46)
[2021-08-30] MEDS: FERROUS SULFATE 325MG TABLET PO SCH ×3 (08:46→17:23)
[2021-08-30] MEDS: CARVEDILOL 6.25 MG TABLET PO SCH ×2 (08:46→21:00)
[2021-08-30] MEDS: INSULIN GLARGINE 100 UNITS/ML SUBCUT SCH ×2 (10:00→22:21)
[2021-08-30] MEDS: HYDRALAZINE 10 MG in SODIUM CHLORIDE 0.9% 49.5 ML IV PRN (12:28)
[2021-08-30] MEDS: HYDROCODONE/ACETAMINOPHEN 10/325MG TABLET PO PRN (12:28)
[2021-08-30] MEDS: DULOXETINE HCL 60MG DR CAPSULE PO SCH (14:47)
[2021-08-30] MEDS: OXYBUTYNIN CHLORIDE 5MG TABLET PO SCH ×2 (14:47→22:22)
[2021-08-30 20:00] VITALS: BP 109/52
[2021-08-30] MEDS: ATORVASTATIN CALCIUM 40MG TABLET PO SCH (21:07)
[2021-08-31] MEDS: INSULIN LISPRO 100 UNITS/ML SUBCUT SCH ×8 (06:00→20:38)
[2021-08-31] MEDS: LEVOTHYROXINE SODIUM 150MCG TABLET PO SCH (06:03)
[2021-08-31] MEDS: GABAPENTIN 300MG CAPSULE PO SCH ×3 (06:03→21:15)
[2021-08-31] MEDS: OXYBUTYNIN CHLORIDE 5MG TABLET PO SCH ×3 (06:04→21:18)
[2021-08-31] MEDS: HYDRALAZINE HCL 25MG TABLET PO SCH ×3 (06:05→21:04)
[2021-08-31] MEDS: TRAMADOL 50MG TABLET PO PRN ×2 (06:06→15:01)
[2021-08-31] MEDS: BLOOD SUGAR DIAGNOSTIC STRIP TEST SCH ×4 (06:07→20:37)
[2021-08-31 06:45] LABS: EOSINOPHILS % 1.9 % (0.0-5.0); HEMOGLOBIN. 8.2 g/dL (12.0-16.0); LYMPHOCYTES % 24.2 % (20.0-50.0); MEAN CORPUSCULAR HEMOGLOBIN 27.3 pg (28.0-32.0); MEAN CORPUSCULAR VOLUME 82.9 fL (81.0-99.0); MEAN PLATELET VOLUME 8.5 fl (7.4-10.4); MONOCYTES % 10.8 % (2.0-8.0); NEUTROPHILS % 62.1 % (40.0-76.0); PLATELET 362 x1000/uL (130-400); RED BLOOD CELL COUNT 3.01 mill/uL (4.2-5.4); RED CELL DISTRIBUTION WIDTH 14.8 % (11.6-14.6)
[2021-08-31 08:00] VITALS: BP 111/73
[2021-08-31] MEDS: MORPHINE SULFATE 2 MG/ML CPJ (NOT FOR IM USE) IV PRN ×2 (08:36→18:11)
[2021-08-31] MEDS: POLYETHYLENE GLYCOL 3350 (17GM) 1 DOSE PACK PO SCH (10:18)
[2021-08-31] MEDS: DOCUSATE SODIUM 100MG CAPSULE PO SCH (10:19)
[2021-08-31] MEDS: AMLODIPINE 10MG TABLET PO SCH ×2 (10:19→18:11)
[2021-08-31] MEDS: FERROUS SULFATE 325MG TABLET PO SCH ×3 (10:19→18:11)
[2021-08-31] MEDS: DULOXETINE HCL 60MG DR CAPSULE PO SCH (10:19)
[2021-08-31] MEDS: ASCORBIC ACID 500 MG TABLET PO SCH (10:19)
[2021-08-31] MEDS: ARIPIPRAZOLE 5MG TABLET PO SCH (10:19)
[2021-08-31] MEDS: CARVEDILOL 6.25 MG TABLET PO SCH ×2 (10:20→21:16)
[2021-08-31] MEDS: INSULIN GLARGINE 100 UNITS/ML SUBCUT SCH ×2 (10:25→21:22)
[2021-08-31] MEDS: HYDROCODONE/ACETAMINOPHEN 10/325MG TABLET PO PRN (12:30)
[2021-08-31 20:00] VITALS: BP 118/47
[2021-08-31] MEDS: ATORVASTATIN CALCIUM 40MG TABLET PO SCH (21:15)
[2021-09-01] MEDS: HYDRALAZINE HCL 25MG TABLET PO SCH ×2 (05:20→14:00)
[2021-09-01] MEDS: OXYBUTYNIN CHLORIDE 5MG TABLET PO SCH ×2 (05:31→14:20)
[2021-09-01] MEDS: GABAPENTIN 300MG CAPSULE PO SCH ×2 (05:31→14:21)
[2021-09-01] MEDS: LEVOTHYROXINE SODIUM 150MCG TABLET PO SCH (05:32)
[2021-09-01] MEDS: BLOOD SUGAR DIAGNOSTIC STRIP TEST SCH ×3 (07:00→17:00)
[2021-09-01] MEDS: INSULIN LISPRO 100 UNITS/ML SUBCUT SCH ×5 (07:00→18:00)
[2021-09-01 08:00] VITALS: BP 114/44
[2021-09-01] MEDS: DULOXETINE HCL 60MG DR CAPSULE PO SCH (09:01)
[2021-09-01] MEDS: ASCORBIC ACID 500 MG TABLET PO SCH (09:01)
[2021-09-01] MEDS: FERROUS SULFATE 325MG TABLET PO SCH ×3 (09:01→18:10)
[2021-09-01] MEDS: DOCUSATE SODIUM 100MG CAPSULE PO SCH (09:01)
[2021-09-01] MEDS: HYDROCODONE/ACETAMINOPHEN 10/325MG TABLET PO PRN (09:02)
[2021-09-01] MEDS: ARIPIPRAZOLE 5MG TABLET PO SCH (09:02)
[2021-09-01] MEDS: POLYETHYLENE GLYCOL 3350 (17GM) 1 DOSE PACK PO SCH (09:02)
[2021-09-01] MEDS: TRAMADOL 50MG TABLET PO PRN (11:44)
[2021-09-01] MEDS: CARVEDILOL 6.25 MG TABLET PO SCH (11:45)
[2021-09-01] MEDS: AMLODIPINE 10MG TABLET PO SCH ×2 (11:45→18:10)
[2021-09-01] MEDS: INSULIN GLARGINE 100 UNITS/ML SUBCUT SCH (11:57)
[2021-09-01] MEDS ORDERED: DIAZEPAM 5 MG TABLET PO NR (15:00)
[2021-09-01] MEDS: MORPHINE SULFATE 2 MG/ML CPJ (NOT FOR IM USE) IV PRN (18:21)
[2021-09-01 19:54] VITALS: BP 147/62
[2021-09-04 15:08] LABS: 25-HYDROXY VITAMIN D3 14 ng/mL (.)
== END 2021-09-01 20:00 | disposition short-term general hospital (02) | DRG 347 ==
PROVIDERS: ADMIT Physical Medicine & Rehabilitation Spinal Cord Injury Medicine; ATTEND Internal Medicine
DX: M48.02 Spinal stenosis, cervical region (principal); G93.41 Metabolic encephalopathy; G82.50 Quadriplegia, unspecified; M47.12 Other spondylosis with myelopathy, cervical region; I13.0 Hypertensive heart and chronic kidney disease with heart failure and stage 1 through stage 4 chronic kidney disease, or unspecified chronic kidney disease; I50.30 Unspecified diastolic (congestive) heart failure; E11.22 Type 2 diabetes mellitus with diabetic chronic kidney disease; D64.9 Anemia, unspecified; E11.42 Type 2 diabetes mellitus with diabetic polyneuropathy; E11.610 Type 2 diabetes mellitus with diabetic neuropathic arthropathy; S32.19XA Other fracture of sacrum, initial encounter for closed fracture; M16.11 Unilateral primary osteoarthritis, right hip; W01.0XXA Fall on same level from slipping, tripping and stumbling without subsequent striking against object, initial encounter; E66.9 Obesity, unspecified; G47.33 Obstructive sleep apnea (adult) (pediatric); N18.9 Chronic kidney disease, unspecified; E03.9 Hypothyroidism, unspecified; R53.81 Other malaise; R13.10 Dysphagia, unspecified; E11.65 Type 2 diabetes mellitus with hyperglycemia; E11.51 Type 2 diabetes mellitus with diabetic peripheral angiopathy without gangrene; M47.26 Other spondylosis with radiculopathy, lumbar region; M48.061 Spinal stenosis, lumbar region without neurogenic claudication; M77.32 Calcaneal spur, left foot; S90.922A Unspecified superficial injury of left foot, initial encounter; S90.921A Unspecified superficial injury of right foot, initial encounter; M47.22 Other spondylosis with radiculopathy, cervical region; I16.1 Hypertensive emergency; E78.5 Hyperlipidemia, unspecified; F40.240 Claustrophobia; Y93.89 Activity, other specified; Y92.89 Other specified places as the place of occurrence of the external cause; Y99.8 Other external cause status; Z99.81 Dependence on supplemental oxygen; Z89.422 Acquired absence of other left toe(s); Z88.0 Allergy status to penicillin; Z28.310 Unvaccinated for COVID-19; Z68.37 Body mass index [BMI] 37.0-37.9, adult; S70.01XA Contusion of right hip, initial encounter; E61.1 Iron deficiency; Z86.73 Personal history of transient ischemic attack (TIA), and cerebral infarction without residual deficits; J98.11 Atelectasis; R50.9 Fever, unspecified
CPT/HCPCS: 36415; 70551; 72141; 80053; 82140; 82306; 82607; 82728; 82746; 82962; 83540; 83550; 84134; 84145; 84443; 85025; 85651; 92523; 92610; 93970; 97110; 97116; 97162; 97166; 97530; 97535; J0360; J1815; J2270; L0172

== ENCOUNTER 2021-09-01 21:28 | Inpatient (IN) | payer MEDICAID ==
[~2021-09-01] VITALS: Ht 171.4 cm; Wt 104.8 kg
[2021-09-01 20:00] VITALS: BP 154/70
[2021-09-01] MEDS ORDERED: ZOLPIDEM TARTRATE 5MG TABLET PO PRN (22:45)
[2021-09-01] MEDS ORDERED: NALOXONE HCL 0.4MG/ML VIAL IV PRN (22:45)
[2021-09-01] MEDS ORDERED: DEXTROSE 50% WATER 50ML SYRINGE IV PRN (23:00)
[2021-09-01] MEDS: MORPHINE SULFATE 2 MG/ML CPJ (NOT FOR IM USE) IV PRN (23:08)
[2021-09-02] VITALS (35 sets, daily range): BP systolic 64–160; BP diastolic 49–76
[2021-09-02] MEDS ORDERED: ALBUTEROL (0.5%) 2.5MG/0.5ML NEB HHN PRN
[2021-09-02] MEDS ORDERED: ACETAMINOPHEN 325MG TABLET PO PRN
[2021-09-02] MEDS ORDERED: ONDANSETRON HCL 4MG/2ML INJ IV PRN
[2021-09-02] MEDS ORDERED: CLONIDINE 0.1MG TABLET PO PRN
[2021-09-02] MEDS: GABAPENTIN 300MG CAPSULE PO SCH ×3 (05:15→21:58)
[2021-09-02] MEDS: FERROUS SULFATE 325MG TABLET PO SCH ×3 (05:18→17:00)
[2021-09-02] MEDS: INSULIN LISPRO 100 UNITS/ML SUBCUT SCH ×4 (05:56→22:03)
[2021-09-02] MEDS: BLOOD SUGAR DIAGNOSTIC STRIP TEST SCH ×3 (05:56→21:00)
[2021-09-02] MEDS: MORPHINE SULFATE 2 MG/ML CPJ (NOT FOR IM USE) IV PRN (06:21)
[2021-09-02 07:09] LABS: BASOPHILS % 1.1 % (0.0-2.0); EOSINOPHILS % 1.6 % (0.0-5.0); HEMATOCRIT. 25.9 % (36.0-48.0); HEMOGLOBIN. 8.6 g/dL (12.0-16.0); LYMPHOCYTES % 20.6 % (20.0-50.0); MEAN CORPUSCULAR HEMOGLOBIN 27.5 pg (28.0-32.0); MEAN CORPUSCULAR VOLUME 82.6 fL (81.0-99.0); MEAN PLATELET VOLUME 7.5 fl (7.4-10.4); NEUTROPHILS % 69.7 % (40.0-76.0); PLATELET 415 x1000/uL (130-400); RED BLOOD CELL COUNT 3.14 mill/uL (4.2-5.4); RED CELL DISTRIBUTION WIDTH 14.8 % (11.6-14.6)
[2021-09-02 07:19] LABS: PROTHROMBIN TIME 10.9 sec (9.6-11.0)
[2021-09-02 07:57] LABS: CHLORIDE 104 mEq/L (98-107)
[2021-09-02] MEDS ORDERED: THROMBIN (BOVINE) 5000 UNITS/VIAL TOP ONE (08:49)
[2021-09-02] MEDS ORDERED: GENTAMICIN SULF 40MG/ML 2ML VIAL ONE (08:49)
[2021-09-02] MEDS ORDERED: LIDOCAINE HCL/EPINEPHRINE 1%-EPI 1:100,000 20 ML VIAL ONE (08:49)
[2021-09-02] MEDS: ARIPIPRAZOLE 5MG TABLET PO SCH (08:51)
[2021-09-02] MEDS: ATORVASTATIN CALCIUM 40MG TABLET PO SCH (08:52)
[2021-09-02] MEDS: LEVOTHYROXINE SODIUM 150MCG TABLET PO SCH (08:52)
[2021-09-02] MEDS: OXYBUTYNIN CHLORIDE 5MG TABLET PO SCH ×3 (08:52→21:58)
[2021-09-02] MEDS: SULFAMETHOXAZOLE/TRIMETHOPRIM 800/160MG TABLET PO SCH ×2 (08:52→17:00)
[2021-09-02] MEDS: INSULIN GLARGINE 100 UNITS/ML SUBCUT SCH ×2 (08:53→21:35)
[2021-09-02] MEDS ORDERED: OXYBUTYNIN CHLORIDE 5MG TABLET PO SCH (09:00)
[2021-09-02] MEDS: METOPROLOL SUCCINATE 50MG ER TABLET PO SCH (09:21)
[2021-09-02] MEDS: HYDRALAZINE HCL 25MG TABLET PO SCH ×2 (09:21→21:00)
[2021-09-02] MEDS: AMLODIPINE 10MG TABLET PO SCH (09:21)
[2021-09-02] MEDS: CARVEDILOL 6.25 MG TABLET PO SCH ×2 (09:22→21:00)
[2021-09-02] MEDS ORDERED: MORPHINE SULFATE 2 MG/ML CPJ (NOT FOR IM USE) IV SCH (10:00)
[2021-09-02] MEDS ORDERED: DEXAMETHASONE 4MG/ML 1ML VIAL ONE (13:16)
[2021-09-02] MEDS ORDERED: ONDANSETRON HCL 4MG/2ML INJ ONE (13:16)
[2021-09-02] MEDS ORDERED: NEOSTIGMINE METHYLSULFATE 1MG/ML 10 ML VIAL ONE (13:16)
[2021-09-02] MEDS ORDERED: ROCURONIUM BROMIDE 10MG/ML VIAL 5ML IV ONE (13:16)
[2021-09-02] MEDS ORDERED: LIDOCAINE HCL 1% 20ML VIAL (Pyxis) INJ ONE (13:16)
[2021-09-02] MEDS ORDERED: PROPOFOL 200MG/20ML VIAL IV ONE (13:16)
[2021-09-02] MEDS ORDERED: MIDAZOLAM HCL 2 MG/2 ML VIAL ONE (13:17)
[2021-09-02] MEDS ORDERED: GLYCOPYRROLATE 0.2 MG/ML 2ML VIAL ONE ×2 (13:17)
[2021-09-02] MEDS ORDERED: FENTANYL CITRATE/PF 50MCG/ML 2ML VIAL ONE (13:17)
[2021-09-02] MEDS ORDERED: CEFAZOLIN SODIUM 1000MG/VIAL ONE (14:50)
[2021-09-02] MEDS ORDERED: CALCIUM CHLORIDE 1GM/10ML SYR IV ONE (15:41)
[2021-09-02] MEDS ORDERED: EPHEDRINE SULFATE 50MG/ML VIAL ONE (15:41)
[2021-09-02] MEDS ORDERED: EPINEPHRINE 0.1MG/ML (1:10,000) 10ML SYR ONE (15:41)
[2021-09-02] MEDS ORDERED: PROPOFOL 10MG/ML 100ML 100 ML IV ONE (15:43)
[2021-09-02] MEDS ORDERED: HYDROMORPHONE HCL/PF 2MG/ML CPJ IV PRN (16:15)
[2021-09-02] MEDS: NICARDIPINE 100 MG in SODIUM CHLORIDE 0.9% 60 ML IV PRN (16:43)
[2021-09-02] MEDS: DEXT 5%/LACTATED RINGERS 1,000 ML IV SCH (16:44)
[2021-09-02 18:04] LABS: BG BASE EXCESS -0.6 mmol/L (-2.0-2.0); BG CARBOXYHEMOGLOBIN 0.3 % (0.5-1.5); BG DEOXYHEMOGLOBIN 0.5 % (0.0-5.0); BG FRACTION INSPIRED OXYGEN 100; BG HCO3 ACT 24.1 mmol/L (22.0-26.0); BG METHEMOGLOBIN 0.3 % (0.0-1.5); BG OXYGEN SATURATION 99.5 % (92.0-98.5); BG OXYHEMOGLOBIN 98.9 % (94.0-97.0); BG PCO2 40.1 mmHg (35.0-45.0); BG PH 7.397 (7.350-7.450); BG PO2 413.6 mmHg (75.0-100.0); BG TOTAL HEMOGLOBIN 10.4 g/dL (12.0-18.0); BG VENT MODE VENT - AC
[2021-09-02 19:19] LABS: CLARITY URINE TURBID (CLEAR); COLOR URINE YELLOW (YELLOW); KETONES URINE NEGATIVE (NEGATIVE); LEUKOCYTE ESTERASE URINE 3+ (NEGATIVE); NITRITE URINE NEGATIVE (NEGATIVE); OCCULT BLOOD URINE 1+ (NEGATIVE); PROTEIN URINE 3+ (NEGATIVE); SPECIFIC GRAVITY URINE 1.016 (1.005-1.030); UROBILINOGEN URINE 0.2 E.U./dL (0.2-1.0)
[2021-09-02] MEDS: PROPOFOL 10MG/ML 100ML 100 ML IV SCH ×2 (19:54→21:35)
[2021-09-02] MEDS: IPRATROPIUM/ALBUTEROL 0.5-3(2.5)MG/3ML NEB HHN SCH (20:54)
[2021-09-02] MEDS: FAMOTIDINE 20MG TABLET PO SCH (21:00)
[2021-09-02] MEDS ORDERED: CEFEPIME 2,000 MG in DEXT 5% WATER 100 ML IV SCH (21:00)
[2021-09-02] MEDS ORDERED: CEFAZOLIN 1000MG PREMIX 50 ML IV SCH (22:00)
[2021-09-02] MEDS ORDERED: CEFAZOLIN 1000MG/50ML PREMIX IV SCH (22:00)
[2021-09-03] VITALS (108 sets, daily range): BP systolic 82–199; BP diastolic 17–180
[2021-09-03] MEDS: PROPOFOL 10MG/ML 100ML 100 ML IV SCH ×2 (00:46→08:17)
[2021-09-03] MEDS: IPRATROPIUM/ALBUTEROL 0.5-3(2.5)MG/3ML NEB HHN SCH ×4 (02:04→21:20)
[2021-09-03] MEDS: HYDRALAZINE 20MG/ML VIAL IV PRN ×2 (02:33→11:27)
[2021-09-03] MEDS: DEXT 5%/LACTATED RINGERS 1,000 ML IV SCH ×3 (02:34→20:33)
[2021-09-03] MEDS: NICARDIPINE 100 MG in SODIUM CHLORIDE 0.9% 60 ML IV PRN ×3 (04:34→18:04)
[2021-09-03] MEDS: OXYBUTYNIN CHLORIDE 5MG TABLET PO SCH ×3 (06:00→21:04)
[2021-09-03] MEDS: GABAPENTIN 300MG CAPSULE PO SCH ×3 (06:00→21:04)
[2021-09-03] MEDS: FERROUS SULFATE 325MG TABLET PO SCH ×3 (06:05→16:15)
[2021-09-03] MEDS: BLOOD SUGAR DIAGNOSTIC STRIP TEST SCH ×4 (06:15→20:36)
[2021-09-03] MEDS: INSULIN LISPRO 100 UNITS/ML SUBCUT SCH ×4 (06:18→20:35)
[2021-09-03 08:00] LABS: BG BASE EXCESS -0.8 mmol/L (-2.0-2.0); BG CARBOXYHEMOGLOBIN 0.3 % (0.5-1.5); BG DEOXYHEMOGLOBIN 1.8 % (0.0-5.0); BG HCO3 ACT 21.6 mmol/L (22.0-26.0); BG METHEMOGLOBIN 0.5 % (0.0-1.5); BG OXYGEN SATURATION 98.2 % (92.0-98.5); BG OXYHEMOGLOBIN 97.4 % (94.0-97.0); BG PCO2 28.3 mmHg (35.0-45.0); BG PO2 112.2 mmHg (75.0-100.0); BG SAMPLE SITE RIGHT RADIAL; BG TOTAL HEMOGLOBIN 10.8 g/dL (12.0-18.0); BG VENT MODE VENT - AC
[2021-09-03] MEDS: LEVOTHYROXINE SODIUM 150MCG TABLET PO SCH (09:49)
[2021-09-03] MEDS: AMLODIPINE 10MG TABLET PO SCH (09:49)
[2021-09-03] MEDS: METOPROLOL SUCCINATE 50MG ER TABLET PO SCH (09:49)
[2021-09-03] MEDS: CARVEDILOL 6.25 MG TABLET PO SCH ×2 (09:49→20:03)
[2021-09-03] MEDS: ARIPIPRAZOLE 5MG TABLET PO SCH (09:49)
[2021-09-03] MEDS: ATORVASTATIN CALCIUM 40MG TABLET PO SCH (09:49)
[2021-09-03] MEDS: HYDRALAZINE HCL 25MG TABLET PO SCH ×2 (09:50→20:03)
[2021-09-03] MEDS: SULFAMETHOXAZOLE/TRIMETHOPRIM 800/160MG TABLET PO SCH ×2 (09:53→16:15)
[2021-09-03] MEDS: INSULIN GLARGINE 100 UNITS/ML SUBCUT SCH ×2 (09:58→20:34)
[2021-09-03] MEDS: MORPHINE SULFATE 2 MG/ML CPJ (NOT FOR IM USE) IV PRN ×2 (12:21→20:04)
[2021-09-03 12:25] LABS: BG BASE EXCESS -2.4 mmol/L (-2.0-2.0); BG CARBOXYHEMOGLOBIN 0.3 % (0.5-1.5); BG DEOXYHEMOGLOBIN 1.1 % (0.0-5.0); BG HCO3 ACT 19.4 mmol/L (22.0-26.0); BG OXYGEN SATURATION 98.9 % (92.0-98.5); BG OXYHEMOGLOBIN 98.6 % (94.0-97.0); BG PCO2 24.7 mmHg (35.0-45.0); BG PH 7.514 (7.350-7.450); BG PO2 152.7 mmHg (75.0-100.0); BG SAMPLE SITE RIGHT RADIAL; BG TOTAL HEMOGLOBIN 10.5 g/dL (12.0-18.0); BG VENT MODE MASK - CPAP
[2021-09-03] MEDS: CEFEPIME 2,000 MG in DEXT 5% WATER 100 ML IV SCH ×2 (13:57→22:12)
[2021-09-03] MEDS ORDERED: DIAZEPAM 5 MG TABLET PO PRN (15:30)
[2021-09-03] MEDS: FAMOTIDINE 20MG TABLET PO SCH (20:02)
[2021-09-03] MEDS: HYDROCODONE/ACETAMINOPHEN 10/325MG TABLET PO PRN (20:06)
[2021-09-04] VITALS (68 sets, daily range): BP systolic 78–145; BP diastolic 41–80
[2021-09-04] MEDS: IPRATROPIUM/ALBUTEROL 0.5-3(2.5)MG/3ML NEB HHN SCH ×4 (01:19→20:22)
[2021-09-04] MEDS: HYDROCODONE/ACETAMINOPHEN 10/325MG TABLET PO PRN (03:58)
[2021-09-04 06:00] LABS: BASOPHILS % 0.1 % (0.0-2.0); HEMOGLOBIN. 8.5 g/dL (12.0-16.0); LYMPHOCYTES % 8.1 % (20.0-50.0); MEAN CORPUSCULAR HEMOGLOBIN 27.8 pg (28.0-32.0); MEAN CORPUSCULAR VOLUME 84.5 fL (81.0-99.0); NEUTROPHILS % 86.8 % (40.0-76.0); PLATELET 404 x1000/uL (130-400); RED BLOOD CELL COUNT 3.08 mill/uL (4.2-5.4); RED CELL DISTRIBUTION WIDTH 14.9 % (11.6-14.6)
[2021-09-04] MEDS: BLOOD SUGAR DIAGNOSTIC STRIP TEST SCH ×4 (07:00→20:17)
[2021-09-04] MEDS: GABAPENTIN 300MG CAPSULE PO SCH ×3 (07:14→21:16)
[2021-09-04] MEDS: FERROUS SULFATE 325MG TABLET PO SCH ×3 (07:14→16:36)
[2021-09-04] MEDS: OXYBUTYNIN CHLORIDE 5MG TABLET PO SCH ×3 (07:14→21:16)
[2021-09-04] MEDS: INSULIN LISPRO 100 UNITS/ML SUBCUT SCH ×4 (07:15→20:23)
[2021-09-04] MEDS: DEXT 5%/LACTATED RINGERS 1,000 ML IV SCH ×2 (07:15→16:36)
[2021-09-04] MEDS: ATORVASTATIN CALCIUM 40MG TABLET PO SCH (08:14)
[2021-09-04] MEDS: ARIPIPRAZOLE 5MG TABLET PO SCH (08:14)
[2021-09-04] MEDS: LEVOTHYROXINE SODIUM 150MCG TABLET PO SCH (08:14)
[2021-09-04] MEDS: CARVEDILOL 6.25 MG TABLET PO SCH ×2 (08:15→20:09)
[2021-09-04] MEDS: HYDRALAZINE HCL 25MG TABLET PO SCH ×2 (08:15→20:09)
[2021-09-04] MEDS: AMLODIPINE 10MG TABLET PO SCH (08:15)
[2021-09-04] MEDS: SULFAMETHOXAZOLE/TRIMETHOPRIM 800/160MG TABLET PO SCH ×2 (08:15→16:36)
[2021-09-04] MEDS: METOPROLOL SUCCINATE 50MG ER TABLET PO SCH (08:15)
[2021-09-04] MEDS: MORPHINE SULFATE 2 MG/ML CPJ (NOT FOR IM USE) IV PRN ×3 (08:16→23:38)
[2021-09-04] MEDS: INSULIN GLARGINE 100 UNITS/ML SUBCUT SCH ×2 (08:17→20:25)
[2021-09-04] MEDS: CEFEPIME 2,000 MG in DEXT 5% WATER 100 ML IV SCH (09:43)
[2021-09-04] MEDS ORDERED: DIAZEPAM 5 MG TABLET PO PRN (12:30)
[2021-09-04] MEDS: FAMOTIDINE 20MG TABLET PO SCH (20:09)
[2021-09-04] MEDS: CEFAZOLIN 2,000 MG in DEXT 5% WATER 100 ML IV SCH (20:12)
[2021-09-04] MEDS ORDERED: HYDRALAZINE 10 MG in SODIUM CHLORIDE 0.9% 49.5 ML IV PRN (23:15)
[2021-09-05] VITALS: BP 119/68
[2021-09-05] MEDS: IPRATROPIUM/ALBUTEROL 0.5-3(2.5)MG/3ML NEB HHN SCH ×4 (02:30→21:10)
[2021-09-05] MEDS: DEXT 5%/LACTATED RINGERS 1,000 ML IV SCH (03:14)
[2021-09-05] MEDS: CEFAZOLIN 2,000 MG in DEXT 5% WATER 100 ML IV SCH ×3 (03:14→21:43)
[2021-09-05 04:00] VITALS: BP 116/51
[2021-09-05] MEDS: OXYBUTYNIN CHLORIDE 5MG TABLET PO SCH ×3 (05:21→21:24)
[2021-09-05] MEDS: GABAPENTIN 300MG CAPSULE PO SCH ×3 (05:21→21:25)
[2021-09-05] MEDS: MORPHINE SULFATE 2 MG/ML CPJ (NOT FOR IM USE) IV PRN ×3 (05:32→21:41)
[2021-09-05] MEDS: BLOOD SUGAR DIAGNOSTIC STRIP TEST SCH ×4 (06:24→21:26)
[2021-09-05 08:00] VITALS: BP 126/54
[2021-09-05] MEDS: INSULIN LISPRO 100 UNITS/ML SUBCUT SCH ×4 (08:22→21:28)
[2021-09-05] MEDS: HYDRALAZINE HCL 25MG TABLET PO SCH ×2 (08:24→21:25)
[2021-09-05] MEDS: ATORVASTATIN CALCIUM 40MG TABLET PO SCH (08:24)
[2021-09-05] MEDS: FERROUS SULFATE 325MG TABLET PO SCH ×3 (08:24→17:24)
[2021-09-05] MEDS: SULFAMETHOXAZOLE/TRIMETHOPRIM 800/160MG TABLET PO SCH ×2 (08:24→17:24)
[2021-09-05] MEDS: LEVOTHYROXINE SODIUM 150MCG TABLET PO SCH (08:24)
[2021-09-05] MEDS: ARIPIPRAZOLE 5MG TABLET PO SCH (08:24)
[2021-09-05] MEDS: CARVEDILOL 6.25 MG TABLET PO SCH ×2 (08:25→21:26)
[2021-09-05] MEDS: AMLODIPINE 10MG TABLET PO SCH (08:25)
[2021-09-05] MEDS: METOPROLOL SUCCINATE 50MG ER TABLET PO SCH (08:31)
[2021-09-05] MEDS: INSULIN GLARGINE 100 UNITS/ML SUBCUT SCH (09:46)
[2021-09-05] MEDS: HYDROCODONE/ACETAMINOPHEN 10/325MG TABLET PO PRN (11:08)
[2021-09-05 12:00] VITALS: BP_SYST 111; BP_SYST 132; BP_DIAS 43; BP_DIAS 89
[2021-09-05 16:00] VITALS: BP 122/45
[2021-09-05 20:00] VITALS: BP 133/56
[2021-09-05] MEDS: FAMOTIDINE 20MG TABLET PO SCH (21:24)
[2021-09-06] VITALS: BP 129/60
[2021-09-06] MEDS: IPRATROPIUM/ALBUTEROL 0.5-3(2.5)MG/3ML NEB HHN SCH ×4 (01:24→18:00)
[2021-09-06 04:00] VITALS: BP 132/58
[2021-09-06] MEDS: CEFAZOLIN 2,000 MG in DEXT 5% WATER 100 ML IV SCH ×3 (04:06→20:52)
[2021-09-06] MEDS: GABAPENTIN 300MG CAPSULE PO SCH ×3 (06:24→21:02)
[2021-09-06] MEDS: OXYBUTYNIN CHLORIDE 5MG TABLET PO SCH ×3 (06:24→21:01)
[2021-09-06] MEDS: MORPHINE SULFATE 2 MG/ML CPJ (NOT FOR IM USE) IV PRN ×2 (06:30→22:00)
[2021-09-06] MEDS: BLOOD SUGAR DIAGNOSTIC STRIP TEST SCH ×4 (06:44→20:58)
[2021-09-06] MEDS: LEVOTHYROXINE SODIUM 150MCG TABLET PO SCH (06:50)
[2021-09-06 08:00] VITALS: BP 136/56
[2021-09-06] MEDS: HYDRALAZINE HCL 25MG TABLET PO SCH ×2 (08:42→20:57)
[2021-09-06] MEDS: SULFAMETHOXAZOLE/TRIMETHOPRIM 800/160MG TABLET PO SCH ×2 (08:42→18:00)
[2021-09-06] MEDS: FERROUS SULFATE 325MG TABLET PO SCH ×3 (08:43→18:00)
[2021-09-06] MEDS: ARIPIPRAZOLE 5MG TABLET PO SCH (08:43)
[2021-09-06] MEDS: INSULIN LISPRO 100 UNITS/ML SUBCUT SCH ×4 (08:55→20:58)
[2021-09-06] MEDS: CARVEDILOL 6.25 MG TABLET PO SCH ×2 (09:00→20:56)
[2021-09-06] MEDS: METOPROLOL SUCCINATE 50MG ER TABLET PO SCH (09:00)
[2021-09-06] MEDS: AMLODIPINE 10MG TABLET PO SCH (09:00)
[2021-09-06] MEDS: ATORVASTATIN CALCIUM 40MG TABLET PO SCH (10:06)
[2021-09-06 12:00] VITALS: BP 133/61
[2021-09-06] MEDS: HYDROCODONE/ACETAMINOPHEN 10/325MG TABLET PO PRN (15:57)
[2021-09-06 16:00] VITALS: BP 139/74
[2021-09-06 20:00] VITALS: BP 150/62
[2021-09-06] MEDS: FAMOTIDINE 20MG TABLET PO SCH (20:56)
[2021-09-07] VITALS: BP 124/70
[2021-09-07] MEDS ORDERED: HYDROCODONE/ACETAMINOPHEN 10/325MG TABLET PO NR (02:45)
[2021-09-07] MEDS: CEFAZOLIN 2,000 MG in DEXT 5% WATER 100 ML IV SCH ×3 (03:46→20:54)
[2021-09-07 04:00] VITALS: BP 136/65
[2021-09-07] MEDS: OXYBUTYNIN CHLORIDE 5MG TABLET PO SCH ×3 (06:49→21:09)
[2021-09-07] MEDS: GABAPENTIN 300MG CAPSULE PO SCH ×3 (06:49→21:09)
[2021-09-07] MEDS: LEVOTHYROXINE SODIUM 150MCG TABLET PO SCH (06:49)
[2021-09-07] MEDS: INSULIN LISPRO 100 UNITS/ML SUBCUT SCH ×4 (06:50→21:10)
[2021-09-07] MEDS: BLOOD SUGAR DIAGNOSTIC STRIP TEST SCH ×4 (06:55→20:59)
[2021-09-07 08:00] VITALS: BP 140/59
[2021-09-07] MEDS: IPRATROPIUM/ALBUTEROL 0.5-3(2.5)MG/3ML NEB HHN SCH ×4 (08:48→21:20)
[2021-09-07] MEDS: SULFAMETHOXAZOLE/TRIMETHOPRIM 800/160MG TABLET PO SCH (09:28)
[2021-09-07] MEDS: FERROUS SULFATE 325MG TABLET PO SCH ×3 (09:29→17:53)
[2021-09-07] MEDS: ATORVASTATIN CALCIUM 40MG TABLET PO SCH (09:29)
[2021-09-07] MEDS: CARVEDILOL 6.25 MG TABLET PO SCH ×2 (09:29→21:00)
[2021-09-07] MEDS: ARIPIPRAZOLE 5MG TABLET PO SCH (09:30)
[2021-09-07] MEDS: HYDRALAZINE HCL 25MG TABLET PO SCH ×2 (09:30→21:00)
[2021-09-07] MEDS: AMLODIPINE 10MG TABLET PO SCH (09:30)
[2021-09-07] MEDS: METOPROLOL SUCCINATE 50MG ER TABLET PO SCH (09:31)
[2021-09-07 12:00] VITALS: BP 138/61
[2021-09-07] MEDS ORDERED: MORPHINE SULFATE 2 MG/ML CPJ (NOT FOR IM USE) IV PRN (12:00)
[2021-09-07 16:00] VITALS: BP 131/61
[2021-09-07] MEDS: HYDROCODONE/ACETAMINOPHEN 10/325MG TABLET PO PRN ×2 (16:19→22:17)
[2021-09-07 20:00] VITALS: BP 102/54
[2021-09-07] MEDS: FAMOTIDINE 20MG TABLET PO SCH (20:55)
[2021-09-08] VITALS: BP 100/56
[2021-09-08] MEDS: IPRATROPIUM/ALBUTEROL 0.5-3(2.5)MG/3ML NEB HHN SCH ×4 (02:18→21:31)
[2021-09-08] MEDS: ZOLPIDEM TARTRATE 5MG TABLET PO PRN (02:58)
[2021-09-08] MEDS: MORPHINE SULFATE 2 MG/ML CPJ (NOT FOR IM USE) IV PRN ×2 (03:05→18:22)
[2021-09-08] MEDS: CEFAZOLIN 2,000 MG in DEXT 5% WATER 100 ML IV SCH ×3 (03:05→20:10)
[2021-09-08 04:00] VITALS: BP 140/55
[2021-09-08] MEDS: LEVOTHYROXINE SODIUM 150MCG TABLET PO SCH (06:34)
[2021-09-08] MEDS: OXYBUTYNIN CHLORIDE 5MG TABLET PO SCH ×3 (06:34→21:29)
[2021-09-08] MEDS: GABAPENTIN 300MG CAPSULE PO SCH ×3 (06:34→21:28)
[2021-09-08] MEDS: HYDROCODONE/ACETAMINOPHEN 10/325MG TABLET PO PRN ×2 (06:42→13:29)
[2021-09-08] MEDS: INSULIN LISPRO 100 UNITS/ML SUBCUT SCH ×4 (06:51→20:34)
[2021-09-08] MEDS: BLOOD SUGAR DIAGNOSTIC STRIP TEST SCH ×4 (06:58→20:29)
[2021-09-08 07:47] LABS: BASOPHILS % 0.9 % (0.0-2.0); EOSINOPHILS % 4.2 % (0.0-5.0); HEMATOCRIT. 24.9 % (36.0-48.0); HEMOGLOBIN. 8.2 g/dL (12.0-16.0); LYMPHOCYTES % 30.1 % (20.0-50.0); MEAN CORPUSCULAR HEMOGLOBIN 27.3 pg (28.0-32.0); MEAN CORPUSCULAR VOLUME 82.7 fL (81.0-99.0); MEAN PLATELET VOLUME 7.4 fl (7.4-10.4); MONOCYTES % 9.1 % (2.0-8.0); NEUTROPHILS % 55.7 % (40.0-76.0); PLATELET 351 x1000/uL (130-400); RED CELL DISTRIBUTION WIDTH 14.7 % (11.6-14.6)
[2021-09-08 08:00] VITALS: BP 150/69
[2021-09-08] MEDS: ATORVASTATIN CALCIUM 40MG TABLET PO SCH (09:12)
[2021-09-08] MEDS: ARIPIPRAZOLE 5MG TABLET PO SCH (09:13)
[2021-09-08] MEDS: AMLODIPINE 10MG TABLET PO SCH (09:13)
[2021-09-08] MEDS: METOPROLOL SUCCINATE 50MG ER TABLET PO SCH (09:13)
[2021-09-08] MEDS: FERROUS SULFATE 325MG TABLET PO SCH ×3 (09:13→18:23)
[2021-09-08] MEDS: CARVEDILOL 6.25 MG TABLET PO SCH ×2 (09:14→20:24)
[2021-09-08] MEDS: HYDRALAZINE HCL 25MG TABLET PO SCH ×2 (09:14→20:23)
[2021-09-08 16:00] VITALS: BP 101/59
[2021-09-08 20:00] VITALS: BP 162/71
[2021-09-08] MEDS: FAMOTIDINE 20MG TABLET PO SCH (20:26)
[2021-09-09] VITALS (7 sets, daily range): BP systolic 130–164; BP diastolic 52–89
[2021-09-09] MEDS: IPRATROPIUM/ALBUTEROL 0.5-3(2.5)MG/3ML NEB HHN SCH ×4 (01:40→19:58)
[2021-09-09] MEDS: ZOLPIDEM TARTRATE 5MG TABLET PO PRN (01:48)
[2021-09-09] MEDS: HYDROCODONE/ACETAMINOPHEN 10/325MG TABLET PO PRN ×2 (01:49→10:18)
[2021-09-09] MEDS: GABAPENTIN 300MG CAPSULE PO SCH ×2 (05:59→12:39)
[2021-09-09] MEDS: LEVOTHYROXINE SODIUM 150MCG TABLET PO SCH (05:59)
[2021-09-09] MEDS: OXYBUTYNIN CHLORIDE 5MG TABLET PO SCH ×2 (06:00→12:39)
[2021-09-09] MEDS: BLOOD SUGAR DIAGNOSTIC STRIP TEST SCH ×4 (06:31→21:07)
[2021-09-09] MEDS: INSULIN LISPRO 100 UNITS/ML SUBCUT SCH ×4 (07:50→21:27)
[2021-09-09 08:14] LABS: BASOPHILS % 0.4 % (0.0-2.0); HEMATOCRIT. 26.2 % (36.0-48.0); HEMOGLOBIN. 8.6 g/dL (12.0-16.0); LYMPHOCYTES % 29.4 % (20.0-50.0); MEAN CORPUSCULAR HEMOGLOBIN 27.2 pg (28.0-32.0); MEAN CORPUSCULAR VOLUME 82.9 fL (81.0-99.0); MEAN PLATELET VOLUME 7.5 fl (7.4-10.4); MONOCYTES % 9.4 % (2.0-8.0); NEUTROPHILS % 55.8 % (40.0-76.0); PLATELET 355 x1000/uL (130-400); RED BLOOD CELL COUNT 3.16 mill/uL (4.2-5.4); RED CELL DISTRIBUTION WIDTH 14.8 % (11.6-14.6)
[2021-09-09] MEDS: FERROUS SULFATE 325MG TABLET PO SCH ×3 (10:15→17:50)
[2021-09-09] MEDS: ARIPIPRAZOLE 5MG TABLET PO SCH (10:16)
[2021-09-09] MEDS: CARVEDILOL 6.25 MG TABLET PO SCH ×2 (10:16→21:05)
[2021-09-09] MEDS: ATORVASTATIN CALCIUM 40MG TABLET PO SCH (10:16)
[2021-09-09] MEDS: METOPROLOL SUCCINATE 50MG ER TABLET PO SCH (10:17)
[2021-09-09] MEDS: HYDRALAZINE HCL 25MG TABLET PO SCH ×2 (10:18→21:04)
[2021-09-09] MEDS: AMLODIPINE 10MG TABLET PO SCH (10:19)
[2021-09-09] MEDS: MORPHINE SULFATE 2 MG/ML CPJ (NOT FOR IM USE) IV PRN ×2 (12:45→21:06)
[2021-09-09] MEDS: FAMOTIDINE 20MG TABLET PO SCH (21:05)
== END 2021-09-09 21:30 | DRG 793 ==
LOC: 6EST 21:28 → MICUNO 09-02 16:45 → 6EST 09-04 23:00
PROVIDERS: ADMIT Internal Medicine; ATTEND Internal Medicine
PROC: 009U00Z Drainage of Spinal Canal with Drainage Device, Open Approach (ICD-10-PCS; principal; 2021-09-02)
PROC: 5A09357 Assistance with Respiratory Ventilation, Less than 24 Consecutive Hours, Continuous Positive Airway Pressure (ICD-10-PCS; 2021-09-05)
DX: G97.51 Postprocedural hemorrhage of a nervous system organ or structure following a nervous system procedure (principal); J96.01 Acute respiratory failure with hypoxia; G82.50 Quadriplegia, unspecified; G93.41 Metabolic encephalopathy; I50.30 Unspecified diastolic (congestive) heart failure; I13.0 Hypertensive heart and chronic kidney disease with heart failure and stage 1 through stage 4 chronic kidney disease, or unspecified chronic kidney disease; M48.03 Spinal stenosis, cervicothoracic region; E11.22 Type 2 diabetes mellitus with diabetic chronic kidney disease; B96.1 Klebsiella pneumoniae [K. pneumoniae] as the cause of diseases classified elsewhere; S32.10XA Unspecified fracture of sacrum, initial encounter for closed fracture; D64.9 Anemia, unspecified; E03.9 Hypothyroidism, unspecified; E11.42 Type 2 diabetes mellitus with diabetic polyneuropathy; E11.610 Type 2 diabetes mellitus with diabetic neuropathic arthropathy; N18.9 Chronic kidney disease, unspecified; I16.1 Hypertensive emergency; E11.51 Type 2 diabetes mellitus with diabetic peripheral angiopathy without gangrene; E11.65 Type 2 diabetes mellitus with hyperglycemia; E61.1 Iron deficiency; E66.9 Obesity, unspecified; E78.5 Hyperlipidemia, unspecified; G47.33 Obstructive sleep apnea (adult) (pediatric); I95.81 Postprocedural hypotension; Y83.8 Other surgical procedures as the cause of abnormal reaction of the patient, or of later complication, without mention of misadventure at the time of the procedure; R26.89 Other abnormalities of gait and mobility; Z20.822 Contact with and (suspected) exposure to COVID-19; M16.11 Unilateral primary osteoarthritis, right hip; M77.32 Calcaneal spur, left foot; N39.0 Urinary tract infection, site not specified; W18.39XA Other fall on same level, initial encounter; R53.81 Other malaise; Y92.89 Other specified places as the place of occurrence of the external cause; Z79.4 Long term (current) use of insulin; Z82.49 Family history of ischemic heart disease and other diseases of the circulatory system; Z86.73 Personal history of transient ischemic attack (TIA), and cerebral infarction without residual deficits; Z89.422 Acquired absence of other left toe(s); Z88.0 Allergy status to penicillin; Z88.8 Allergy status to other drugs, medicaments and biological substances; Z79.899 Other long term (current) drug therapy; Y93.89 Activity, other specified; Y99.8 Other external cause status; Z68.35 Body mass index [BMI] 35.0-35.9, adult
CPT/HCPCS: 36415; 36600; 71045; 72040; 72141; 76000; 78580; 80048; 81003; 82375; 82805; 82962; 83036; 84478; 85025; 87070; 87075; 87077; 87186; 87426; 88304; 94002; 94003; 94640; 94660; 97116; 97162; 97166; 97530; 97535; J0360; J0690; J0692; J1100; J1170; J1580; J1815; J2250; J2270; J2405; J2704; J2710; J3010; J3490; J7050; J7060; J7121

== ENCOUNTER 2021-09-09 21:33 | Inpatient (IN) | payer MEDICAID ==
[~2021-09-09] VITALS: Ht 171.4 cm; Wt 117.9 kg
[2021-09-09 21:33] VITALS: BP 144/61
[2021-09-09 22:00] VITALS: BP 144/61
[2021-09-09] MEDS ORDERED: ACETAMINOPHEN 650MG/20.3ML UDC PO PRN (23:45)
[2021-09-09] MEDS ORDERED: MORPHINE SULFATE 2 MG/ML CPJ (NOT FOR IM USE) IV PRN (23:45)
[2021-09-09] MEDS ORDERED: ONDANSETRON HCL 4MG/2ML INJ IV PRN (23:45)
[2021-09-10] MEDS ORDERED: ZOLPIDEM TARTRATE 5MG TABLET PO PRN (00:30)
[2021-09-10] MEDS ORDERED: NALOXONE HCL 0.4MG/ML VIAL IV PRN ×2 (00:30→11:30)
[2021-09-10] MEDS ORDERED: HYDROCODONE/ACETAMINOPHEN 10/325MG TABLET PO PRN (00:30)
[2021-09-10] MEDS ORDERED: NALOXONE HCL 0.4 MG/ML 1ML VIAL IV PRN (00:30)
[2021-09-10] MEDS ORDERED: CLONIDINE 0.1MG TABLET PO PRN (00:30)
[2021-09-10] MEDS ORDERED: DEXTROSE 50% WATER 50ML SYRINGE IV PRN (00:30)
[2021-09-10] MEDS ORDERED: ALBUTEROL (0.5%) 2.5MG/0.5ML NEB HHN PRN (00:30)
[2021-09-10] MEDS: GABAPENTIN 300MG CAPSULE PO SCH ×4 (00:47→21:59)
[2021-09-10] MEDS: OXYBUTYNIN CHLORIDE 5MG TABLET PO SCH ×4 (00:49→21:59)
[2021-09-10] MEDS ORDERED: GABAPENTIN 300MG CAPSULE PO SCH (06:00)
[2021-09-10] MEDS ORDERED: OXYBUTYNIN CHLORIDE 5MG TABLET PO SCH (06:00)
[2021-09-10] MEDS ORDERED: BLOOD SUGAR DIAGNOSTIC STRIP TEST SCH (06:30)
[2021-09-10 06:39] LABS: CHLORIDE 103 mEq/L (98-107)
[2021-09-10 06:49] LABS: BASOPHILS % 0.6 % (0.0-2.0); EOSINOPHILS % 3.7 % (0.0-5.0); HEMATOCRIT. 23.3 % (36.0-48.0); HEMOGLOBIN. 7.7 g/dL (12.0-16.0); LYMPHOCYTES % 25.1 % (20.0-50.0); MEAN CORPUSCULAR HEMOGLOBIN 27.3 pg (28.0-32.0); MEAN CORPUSCULAR VOLUME 82.3 fL (81.0-99.0); MEAN PLATELET VOLUME 7.8 fl (7.4-10.4); MONOCYTES % 9.4 % (2.0-8.0); NEUTROPHILS % 61.2 % (40.0-76.0); PLATELET 344 x1000/uL (130-400); RED BLOOD CELL COUNT 2.83 mill/uL (4.2-5.4); RED CELL DISTRIBUTION WIDTH 14.8 % (11.6-14.6)
[2021-09-10] MEDS: LEVOTHYROXINE SODIUM 150MCG TABLET PO SCH (07:00)
[2021-09-10] MEDS: BLOOD SUGAR DIAGNOSTIC STRIP TEST SCH ×4 (07:05→21:04)
[2021-09-10] MEDS: IPRATROPIUM/ALBUTEROL 0.5-3(2.5)MG/3ML NEB HHN SCH ×3 (07:40→21:44)
[2021-09-10 08:00] VITALS: BP 125/53
[2021-09-10] MEDS ORDERED: BACLOFEN 10MG TABLET PO PRN (08:30)
[2021-09-10] MEDS ORDERED: TRAMADOL 50MG TABLET PO PRN (08:30)
[2021-09-10] MEDS ORDERED: METOPROLOL SUCCINATE 50MG ER TABLET PO SCH (09:00)
[2021-09-10] MEDS: INSULIN LISPRO 100 UNITS/ML SUBCUT SCH ×4 (09:00→22:00)
[2021-09-10] MEDS: LIDOCAINE 5% PATCH TOP SCH (10:32)
[2021-09-10] MEDS: CARVEDILOL 6.25 MG TABLET PO SCH ×2 (10:33→21:58)
[2021-09-10] MEDS: HYDRALAZINE HCL 25MG TABLET PO SCH ×2 (10:33→21:59)
[2021-09-10] MEDS: FERROUS SULFATE 325MG TABLET PO SCH ×3 (10:34→18:22)
[2021-09-10] MEDS: AMLODIPINE 10MG TABLET PO SCH (10:34)
[2021-09-10] MEDS: ARIPIPRAZOLE 5MG TABLET PO SCH (10:34)
[2021-09-10] MEDS: HYDROCODONE/ACETAMINOPHEN 10/325MG TABLET PO PRN ×3 (13:56→22:41)
[2021-09-10 20:00] VITALS: BP 161/64
[2021-09-10] MEDS: FAMOTIDINE 20MG TABLET PO SCH (21:58)
[2021-09-10] MEDS: ATORVASTATIN CALCIUM 40MG TABLET PO SCH (21:58)
[2021-09-11] MEDS: IPRATROPIUM/ALBUTEROL 0.5-3(2.5)MG/3ML NEB HHN SCH ×4 (02:01→21:18)
[2021-09-11] MEDS: BLOOD SUGAR DIAGNOSTIC STRIP TEST SCH ×4 (05:57→21:00)
[2021-09-11] MEDS: GABAPENTIN 300MG CAPSULE PO SCH ×3 (06:07→22:17)
[2021-09-11] MEDS: OXYBUTYNIN CHLORIDE 5MG TABLET PO SCH ×3 (06:07→23:01)
[2021-09-11] MEDS: LEVOTHYROXINE SODIUM 150MCG TABLET PO SCH (06:07)
[2021-09-11 08:00] VITALS: BP 126/46
[2021-09-11] MEDS: METFORMIN HCL 500MG TABLET PO SCH ×2 (09:00→18:19)
[2021-09-11] MEDS: CARVEDILOL 6.25 MG TABLET PO SCH ×2 (09:00→22:17)
[2021-09-11] MEDS: FERROUS SULFATE 325MG TABLET PO SCH ×3 (09:00→18:19)
[2021-09-11] MEDS: AMLODIPINE 10MG TABLET PO SCH (09:00)
[2021-09-11] MEDS: HYDROCODONE/ACETAMINOPHEN 10/325MG TABLET PO PRN ×4 (09:00→23:02)
[2021-09-11] MEDS: HYDRALAZINE HCL 25MG TABLET PO SCH ×2 (09:00→22:16)
[2021-09-11] MEDS: ARIPIPRAZOLE 5MG TABLET PO SCH (09:00)
[2021-09-11] MEDS: INSULIN LISPRO 100 UNITS/ML SUBCUT SCH ×4 (09:00→21:00)
[2021-09-11] MEDS: LIDOCAINE 5% PATCH TOP SCH (09:00)
[2021-09-11 20:00] VITALS: BP_SYST 144; BP_SYST 150; BP_DIAS 54; BP_DIAS 66
[2021-09-11] MEDS: FAMOTIDINE 20MG TABLET PO SCH (22:17)
[2021-09-11] MEDS: ATORVASTATIN CALCIUM 40MG TABLET PO SCH (22:17)
[2021-09-12] MEDS: IPRATROPIUM/ALBUTEROL 0.5-3(2.5)MG/3ML NEB HHN SCH ×3 (02:07→22:12)
[2021-09-12] MEDS: BLOOD SUGAR DIAGNOSTIC STRIP TEST SCH ×4 (06:15→21:15)
[2021-09-12] MEDS: LEVOTHYROXINE SODIUM 150MCG TABLET PO SCH (06:22)
[2021-09-12] MEDS: OXYBUTYNIN CHLORIDE 5MG TABLET PO SCH ×3 (06:22→21:15)
[2021-09-12] MEDS: GABAPENTIN 300MG CAPSULE PO SCH ×3 (06:23→21:16)
[2021-09-12] MEDS: INSULIN LISPRO 100 UNITS/ML SUBCUT SCH ×4 (06:37→21:29)
[2021-09-12 08:00] VITALS: BP 144/63
[2021-09-12] MEDS: FERROUS SULFATE 325MG TABLET PO SCH ×3 (08:24→17:24)
[2021-09-12] MEDS: HYDROCODONE/ACETAMINOPHEN 10/325MG TABLET PO PRN ×4 (08:24→21:28)
[2021-09-12] MEDS: ARIPIPRAZOLE 5MG TABLET PO SCH (08:25)
[2021-09-12] MEDS: HYDRALAZINE HCL 25MG TABLET PO SCH ×2 (08:25→21:14)
[2021-09-12] MEDS: METHOCARBAMOL 500MG TABLET PO PRN (08:25)
[2021-09-12] MEDS: AMLODIPINE 10MG TABLET PO SCH (08:26)
[2021-09-12] MEDS: CARVEDILOL 6.25 MG TABLET PO SCH ×2 (08:27→21:15)
[2021-09-12] MEDS: LIDOCAINE 5% PATCH TOP SCH (08:40)
[2021-09-12] MEDS: METFORMIN HCL 500MG TABLET PO SCH ×2 (08:40→17:25)
[2021-09-12 16:52] LABS: TOTAL IRON BINDING CAPACITY 214 ug/dL (250-450)
[2021-09-12 19:54] VITALS: BP 137/48
[2021-09-12] MEDS: FAMOTIDINE 20MG TABLET PO SCH (21:15)
[2021-09-12] MEDS: ATORVASTATIN CALCIUM 40MG TABLET PO SCH (21:15)
[2021-09-13] MEDS: IPRATROPIUM/ALBUTEROL 0.5-3(2.5)MG/3ML NEB HHN SCH ×4 (01:39→20:04)
[2021-09-13] MEDS: OXYBUTYNIN CHLORIDE 5MG TABLET PO SCH ×3 (05:48→21:13)
[2021-09-13] MEDS: GABAPENTIN 300MG CAPSULE PO SCH ×3 (05:49→21:13)
[2021-09-13] MEDS: BLOOD SUGAR DIAGNOSTIC STRIP TEST SCH ×4 (05:49→21:00)
[2021-09-13] MEDS: HYDROCODONE/ACETAMINOPHEN 10/325MG TABLET PO PRN ×3 (06:14→17:06)
[2021-09-13] MEDS: LEVOTHYROXINE SODIUM 150MCG TABLET PO SCH (06:14)
[2021-09-13] MEDS: INSULIN LISPRO 100 UNITS/ML SUBCUT SCH ×4 (06:15→21:21)
[2021-09-13 08:00] VITALS: BP 153/76
[2021-09-13] MEDS: FERROUS SULFATE 325MG TABLET PO SCH ×3 (09:13→16:56)
[2021-09-13] MEDS: HYDRALAZINE HCL 25MG TABLET PO SCH ×2 (09:19→21:00)
[2021-09-13] MEDS: ARIPIPRAZOLE 5MG TABLET PO SCH (09:20)
[2021-09-13] MEDS: AMLODIPINE 10MG TABLET PO SCH (09:21)
[2021-09-13] MEDS: CARVEDILOL 6.25 MG TABLET PO SCH ×2 (09:22→21:00)
[2021-09-13] MEDS: METFORMIN HCL 500MG TABLET PO SCH ×2 (09:22→16:55)
[2021-09-13] MEDS: LIDOCAINE 5% PATCH TOP SCH (09:26)
[2021-09-13] MEDS ORDERED: POLYETHYLENE GLYCOL 3350 (17GM) 1 DOSE PACK PO NR (13:15)
[2021-09-13 20:00] VITALS: BP 100/66
[2021-09-13] MEDS: ATORVASTATIN CALCIUM 40MG TABLET PO SCH (21:13)
[2021-09-13] MEDS: FAMOTIDINE 20MG TABLET PO SCH (21:13)
[2021-09-14 00:08] LABS: BASOPHILS % 0.5 % (0.0-2.0); HEMOGLOBIN. 9.3 g/dL (12.0-16.0); LYMPHOCYTES % 27.4 % (20.0-50.0); MEAN CORPUSCULAR HEMOGLOBIN 27.2 pg (28.0-32.0); MEAN CORPUSCULAR VOLUME 82.1 fL (81.0-99.0); MEAN PLATELET VOLUME 7.8 fl (7.4-10.4); MONOCYTES % 8.8 % (2.0-8.0); NEUTROPHILS % 59.3 % (40.0-76.0); PLATELET 429 x1000/uL (130-400); RED BLOOD CELL COUNT 3.41 mill/uL (4.2-5.4); RED CELL DISTRIBUTION WIDTH 14.8 % (11.6-14.6)
[2021-09-14] MEDS: HYDROCODONE/ACETAMINOPHEN 10/325MG TABLET PO PRN ×4 (00:23→23:22)
[2021-09-14] MEDS: IPRATROPIUM/ALBUTEROL 0.5-3(2.5)MG/3ML NEB HHN SCH ×4 (01:37→20:40)
[2021-09-14 06:36] LABS: BASOPHILS % 0.3 % (0.0-2.0); EOSINOPHILS % 3.4 % (0.0-5.0); HEMATOCRIT. 23.7 % (36.0-48.0); HEMOGLOBIN. 7.7 g/dL (12.0-16.0); LYMPHOCYTES % 25.9 % (20.0-50.0); MEAN CORPUSCULAR HEMOGLOBIN 26.9 pg (28.0-32.0); MEAN CORPUSCULAR VOLUME 82.3 fL (81.0-99.0); MEAN PLATELET VOLUME 7.8 fl (7.4-10.4); MONOCYTES % 10.6 % (2.0-8.0); NEUTROPHILS % 59.8 % (40.0-76.0); PLATELET 373 x1000/uL (130-400); RED BLOOD CELL COUNT 2.88 mill/uL (4.2-5.4); RED CELL DISTRIBUTION WIDTH 14.9 % (11.6-14.6)
[2021-09-14] MEDS: OXYBUTYNIN CHLORIDE 5MG TABLET PO SCH ×3 (06:59→23:22)
[2021-09-14] MEDS: LEVOTHYROXINE SODIUM 150MCG TABLET PO SCH (06:59)
[2021-09-14] MEDS: GABAPENTIN 300MG CAPSULE PO SCH ×3 (06:59→21:45)
[2021-09-14] MEDS: BLOOD SUGAR DIAGNOSTIC STRIP TEST SCH ×4 (07:00→21:00)
[2021-09-14] MEDS: INSULIN LISPRO 100 UNITS/ML SUBCUT SCH ×4 (07:06→21:00)
[2021-09-14 07:46] LABS: CHLORIDE 106 mEq/L (98-107)
[2021-09-14 08:00] VITALS: BP 139/51
[2021-09-14] MEDS: METFORMIN HCL 500MG TABLET PO SCH ×2 (09:17→18:16)
[2021-09-14] MEDS: CARVEDILOL 6.25 MG TABLET PO SCH ×2 (09:18→21:46)
[2021-09-14] MEDS: ARIPIPRAZOLE 5MG TABLET PO SCH (09:19)
[2021-09-14] MEDS: HYDRALAZINE HCL 25MG TABLET PO SCH ×2 (09:19→21:46)
[2021-09-14] MEDS: FERROUS SULFATE 325MG TABLET PO SCH ×3 (09:20→14:07)
[2021-09-14] MEDS: AMLODIPINE 10MG TABLET PO SCH (09:20)
[2021-09-14] MEDS: LIDOCAINE 5% PATCH TOP SCH (09:21)
[2021-09-14 20:00] VITALS: BP 162/79
[2021-09-14] MEDS: ATORVASTATIN CALCIUM 40MG TABLET PO SCH (21:46)
[2021-09-14] MEDS: FAMOTIDINE 20MG TABLET PO SCH (21:46)
[2021-09-14] MEDS: METHOCARBAMOL 500MG TABLET PO PRN (23:26)
[2021-09-15] MEDS: IPRATROPIUM/ALBUTEROL 0.5-3(2.5)MG/3ML NEB HHN SCH ×3 (02:01→20:26)
[2021-09-15] MEDS: HYDROCODONE/ACETAMINOPHEN 10/325MG TABLET PO PRN ×4 (02:51→20:37)
[2021-09-15] MEDS: LEVOTHYROXINE SODIUM 150MCG TABLET PO SCH (06:50)
[2021-09-15] MEDS: OXYBUTYNIN CHLORIDE 5MG TABLET PO SCH ×3 (06:50→21:13)
[2021-09-15] MEDS: GABAPENTIN 300MG CAPSULE PO SCH ×3 (06:50→21:13)
[2021-09-15] MEDS: BLOOD SUGAR DIAGNOSTIC STRIP TEST SCH ×4 (07:14→20:56)
[2021-09-15] MEDS: INSULIN LISPRO 100 UNITS/ML SUBCUT SCH ×4 (07:20→21:24)
[2021-09-15 08:00] VITALS: BP 156/68
[2021-09-15] MEDS: ARIPIPRAZOLE 5MG TABLET PO SCH (09:39)
[2021-09-15] MEDS: FERROUS SULFATE 325MG TABLET PO SCH ×3 (09:39→17:57)
[2021-09-15] MEDS: METFORMIN HCL 500MG TABLET PO SCH ×2 (09:39→17:57)
[2021-09-15] MEDS: METHOCARBAMOL 500MG TABLET PO PRN ×2 (09:39→17:57)
[2021-09-15] MEDS: CARVEDILOL 6.25 MG TABLET PO SCH ×2 (09:40→20:36)
[2021-09-15] MEDS: HYDRALAZINE HCL 25MG TABLET PO SCH ×2 (09:40→20:36)
[2021-09-15] MEDS: AMLODIPINE 10MG TABLET PO SCH (09:40)
[2021-09-15] MEDS: LIDOCAINE 5% PATCH TOP SCH (09:42)
[2021-09-15] MEDS: CALCIUM CARBONATE 500MG TABLET CHEW PO PRN (18:06)
[2021-09-15] MEDS: ONDANSETRON 4MG ODT PO PRN (18:23)
[2021-09-15 20:18] VITALS: BP 139/61
[2021-09-15] MEDS: FAMOTIDINE 20MG TABLET PO SCH (20:36)
[2021-09-15] MEDS: ATORVASTATIN CALCIUM 40MG TABLET PO SCH (20:36)
[2021-09-16] MEDS: IPRATROPIUM/ALBUTEROL 0.5-3(2.5)MG/3ML NEB HHN SCH ×4 (02:15→21:15)
[2021-09-16] MEDS: HYDROCODONE/ACETAMINOPHEN 10/325MG TABLET PO PRN ×3 (03:33→21:11)
[2021-09-16] MEDS: GABAPENTIN 300MG CAPSULE PO SCH ×3 (06:01→21:06)
[2021-09-16] MEDS: OXYBUTYNIN CHLORIDE 5MG TABLET PO SCH ×3 (06:02→21:07)
[2021-09-16] MEDS: LEVOTHYROXINE SODIUM 150MCG TABLET PO SCH (06:02)
[2021-09-16] MEDS: BLOOD SUGAR DIAGNOSTIC STRIP TEST SCH ×4 (06:02→21:00)
[2021-09-16 08:00] VITALS: BP 141/74
[2021-09-16] MEDS: ARIPIPRAZOLE 5MG TABLET PO SCH (08:12)
[2021-09-16] MEDS: METFORMIN HCL 500MG TABLET PO SCH ×2 (08:13→17:46)
[2021-09-16] MEDS: HYDRALAZINE HCL 25MG TABLET PO SCH ×2 (08:14→21:10)
[2021-09-16] MEDS: AMLODIPINE 10MG TABLET PO SCH (08:14)
[2021-09-16] MEDS: CARVEDILOL 6.25 MG TABLET PO SCH ×2 (08:15→21:08)
[2021-09-16] MEDS: FERROUS SULFATE 325MG TABLET PO SCH ×3 (08:15→17:47)
[2021-09-16] MEDS: LIDOCAINE 5% PATCH TOP SCH ×2 (09:00)
[2021-09-16] MEDS: INSULIN LISPRO 100 UNITS/ML SUBCUT SCH ×3 (13:08→22:21)
[2021-09-16] MEDS: METHOCARBAMOL 500MG TABLET PO PRN (18:19)
[2021-09-16 19:57] VITALS: BP 151/73
[2021-09-16] MEDS: ATORVASTATIN CALCIUM 40MG TABLET PO SCH (21:06)
[2021-09-16] MEDS: FAMOTIDINE 20MG TABLET PO SCH (21:07)
[2021-09-17] MEDS: IPRATROPIUM/ALBUTEROL 0.5-3(2.5)MG/3ML NEB HHN SCH ×4 (01:22→21:44)
[2021-09-17] MEDS: HYDROCODONE/ACETAMINOPHEN 10/325MG TABLET PO PRN ×4 (01:34→22:30)
[2021-09-17] MEDS: GABAPENTIN 300MG CAPSULE PO SCH ×3 (05:58→20:59)
[2021-09-17] MEDS: LEVOTHYROXINE SODIUM 150MCG TABLET PO SCH (05:58)
[2021-09-17] MEDS: OXYBUTYNIN CHLORIDE 5MG TABLET PO SCH ×3 (05:58→20:59)
[2021-09-17] MEDS: INSULIN LISPRO 100 UNITS/ML SUBCUT SCH ×4 (06:14→21:00)
[2021-09-17] MEDS: BLOOD SUGAR DIAGNOSTIC STRIP TEST SCH ×4 (06:16→21:06)
[2021-09-17 08:00] VITALS: BP 140/60
[2021-09-17] MEDS: CARVEDILOL 6.25 MG TABLET PO SCH ×2 (08:54→21:00)
[2021-09-17] MEDS: ARIPIPRAZOLE 5MG TABLET PO SCH (08:54)
[2021-09-17] MEDS: AMLODIPINE 10MG TABLET PO SCH (08:54)
[2021-09-17] MEDS: METFORMIN HCL 500MG TABLET PO SCH ×2 (08:54→17:37)
[2021-09-17] MEDS: FERROUS SULFATE 325MG TABLET PO SCH ×3 (08:55→17:38)
[2021-09-17] MEDS: HYDRALAZINE HCL 25MG TABLET PO SCH ×2 (08:55→21:00)
[2021-09-17] MEDS: LIDOCAINE 5% PATCH TOP SCH ×2 (08:56→08:57)
[2021-09-17] MEDS: OXYCODONE HCL 5MG TABLET PO PRN ×2 (10:16→17:41)
[2021-09-17] MEDS: POLYETHYLENE GLYCOL 3350 (17GM) 1 DOSE PACK PO PRN (13:30)
[2021-09-17] MEDS: METHOCARBAMOL 500MG TABLET PO PRN (13:30)
[2021-09-17 20:00] VITALS: BP 156/72
[2021-09-17] MEDS: FAMOTIDINE 20MG TABLET PO SCH (20:59)
[2021-09-17] MEDS: ATORVASTATIN CALCIUM 40MG TABLET PO SCH (21:00)
[2021-09-18] MEDS: IPRATROPIUM/ALBUTEROL 0.5-3(2.5)MG/3ML NEB HHN SCH ×4 (02:38→19:44)
[2021-09-18] MEDS: GABAPENTIN 300MG CAPSULE PO SCH ×3 (06:18→21:21)
[2021-09-18] MEDS: OXYBUTYNIN CHLORIDE 5MG TABLET PO SCH ×3 (06:18→21:22)
[2021-09-18] MEDS: OXYCODONE HCL 5MG TABLET PO PRN ×3 (06:19→21:19)
[2021-09-18] MEDS: LEVOTHYROXINE SODIUM 150MCG TABLET PO SCH (06:19)
[2021-09-18] MEDS: INSULIN LISPRO 100 UNITS/ML SUBCUT SCH ×3 (06:26→21:00)
[2021-09-18] MEDS: BLOOD SUGAR DIAGNOSTIC STRIP TEST SCH ×4 (06:30→21:20)
[2021-09-18 08:00] VITALS: BP 156/68
[2021-09-18 08:07] VITALS: BP 100/68
[2021-09-18] MEDS: FERROUS SULFATE 325MG TABLET PO SCH ×3 (08:41→17:24)
[2021-09-18] MEDS: ARIPIPRAZOLE 5MG TABLET PO SCH (08:41)
[2021-09-18] MEDS: HYDRALAZINE HCL 25MG TABLET PO SCH ×2 (08:42→21:02)
[2021-09-18] MEDS: METFORMIN HCL 500MG TABLET PO SCH ×2 (08:42→17:24)
[2021-09-18] MEDS: METHOCARBAMOL 500MG TABLET PO PRN (08:42)
[2021-09-18] MEDS: CARVEDILOL 6.25 MG TABLET PO SCH ×2 (08:43→21:03)
[2021-09-18] MEDS: LIDOCAINE 5% PATCH TOP SCH ×2 (08:43→09:00)
[2021-09-18] MEDS: AMLODIPINE 10MG TABLET PO SCH (09:00)
[2021-09-18] MEDS: HYDROCODONE/ACETAMINOPHEN 10/325MG TABLET PO PRN ×2 (10:27→17:28)
[2021-09-18 19:53] LABS: BASOPHILS % 0.7 % (0.0-2.0); HEMOGLOBIN. 8.2 g/dL (12.0-16.0); LYMPHOCYTES % 36.1 % (20.0-50.0); MEAN CORPUSCULAR HEMOGLOBIN 26.9 pg (28.0-32.0); MEAN CORPUSCULAR VOLUME 82.1 fL (81.0-99.0); MONOCYTES % 9.1 % (2.0-8.0); NEUTROPHILS % 51.1 % (40.0-76.0); PLATELET 394 x1000/uL (130-400); RED BLOOD CELL COUNT 3.05 mill/uL (4.2-5.4); RED CELL DISTRIBUTION WIDTH 14.7 % (11.6-14.6)
[2021-09-18 20:00] VITALS: BP 157/74
[2021-09-18 20:27] LABS: CHLORIDE 105 mEq/L (98-107)
[2021-09-18] MEDS: ATORVASTATIN CALCIUM 40MG TABLET PO SCH (21:02)
[2021-09-18] MEDS: FAMOTIDINE 20MG TABLET PO SCH (21:02)
[2021-09-19] MEDS: IPRATROPIUM/ALBUTEROL 0.5-3(2.5)MG/3ML NEB HHN SCH ×4 (02:00→20:23)
[2021-09-19] MEDS: OXYBUTYNIN CHLORIDE 5MG TABLET PO SCH ×3 (05:23→21:15)
[2021-09-19] MEDS: GABAPENTIN 300MG CAPSULE PO SCH ×3 (05:23→21:15)
[2021-09-19] MEDS: HYDROCODONE/ACETAMINOPHEN 10/325MG TABLET PO PRN ×3 (05:46→18:57)
[2021-09-19] MEDS: BLOOD SUGAR DIAGNOSTIC STRIP TEST SCH ×4 (06:01→21:14)
[2021-09-19] MEDS: LEVOTHYROXINE SODIUM 150MCG TABLET PO SCH (06:12)
[2021-09-19] MEDS: OXYCODONE HCL 5MG TABLET PO PRN ×3 (06:20→23:35)
[2021-09-19] MEDS: INSULIN LISPRO 100 UNITS/ML SUBCUT SCH ×4 (07:51→22:28)
[2021-09-19 08:00] VITALS: BP 127/49
[2021-09-19] MEDS: ARIPIPRAZOLE 5MG TABLET PO SCH (08:45)
[2021-09-19] MEDS: HYDRALAZINE HCL 25MG TABLET PO SCH ×2 (08:45→21:11)
[2021-09-19] MEDS: FERROUS SULFATE 325MG TABLET PO SCH ×3 (08:46→17:03)
[2021-09-19] MEDS: AMLODIPINE 10MG TABLET PO SCH (08:47)
[2021-09-19] MEDS: METFORMIN HCL 500MG TABLET PO SCH ×2 (08:47→17:05)
[2021-09-19] MEDS: CARVEDILOL 6.25 MG TABLET PO SCH ×2 (08:49→21:12)
[2021-09-19] MEDS: LIDOCAINE 5% PATCH TOP SCH ×2 (08:54→09:00)
[2021-09-19] MEDS: METHOCARBAMOL 500MG TABLET PO PRN ×2 (14:42→23:43)
[2021-09-19 20:00] VITALS: BP 170/74
[2021-09-19] MEDS: ATORVASTATIN CALCIUM 40MG TABLET PO SCH (21:10)
[2021-09-19] MEDS: FAMOTIDINE 20MG TABLET PO SCH (21:10)
[2021-09-20] MEDS: IPRATROPIUM/ALBUTEROL 0.5-3(2.5)MG/3ML NEB HHN SCH ×4 (02:52→19:45)
[2021-09-20] MEDS: GABAPENTIN 300MG CAPSULE PO SCH ×3 (06:08→22:01)
[2021-09-20] MEDS: LEVOTHYROXINE SODIUM 150MCG TABLET PO SCH (06:09)
[2021-09-20] MEDS: OXYBUTYNIN CHLORIDE 5MG TABLET PO SCH ×3 (06:10→22:01)
[2021-09-20] MEDS: BLOOD SUGAR DIAGNOSTIC STRIP TEST SCH ×4 (06:30→21:00)
[2021-09-20 08:00] VITALS: BP 152/63
[2021-09-20] MEDS: HYDROCODONE/ACETAMINOPHEN 10/325MG TABLET PO PRN ×3 (08:45→20:31)
[2021-09-20] MEDS: HYDRALAZINE HCL 25MG TABLET PO SCH (08:46)
[2021-09-20] MEDS: ARIPIPRAZOLE 5MG TABLET PO SCH (08:46)
[2021-09-20] MEDS: AMLODIPINE 10MG TABLET PO SCH (08:47)
[2021-09-20] MEDS: FERROUS SULFATE 325MG TABLET PO SCH ×3 (08:47→17:22)
[2021-09-20] MEDS: CARVEDILOL 6.25 MG TABLET PO SCH ×2 (08:48→20:29)
[2021-09-20] MEDS: METFORMIN HCL 500MG TABLET PO SCH ×2 (08:48→17:22)
[2021-09-20] MEDS: LIDOCAINE 5% PATCH TOP SCH ×2 (09:00)
[2021-09-20] MEDS: INSULIN LISPRO 100 UNITS/ML SUBCUT SCH ×4 (09:00→21:00)
[2021-09-20] MEDS: METHOCARBAMOL 500MG TABLET PO PRN ×2 (10:28→22:01)
[2021-09-20] MEDS ORDERED: NALOXONE HCL 0.4MG/ML VIAL IV PRN (17:30)
[2021-09-20] MEDS: OXYCODONE HCL 5MG TABLET PO PRN (18:30)
[2021-09-20 20:00] VITALS: BP 160/76
[2021-09-20] MEDS: ATORVASTATIN CALCIUM 40MG TABLET PO SCH (20:29)
[2021-09-20] MEDS: FAMOTIDINE 20MG TABLET PO SCH (20:30)
[2021-09-20] MEDS: POLYETHYLENE GLYCOL 3350 (17GM) 1 DOSE PACK PO PRN (20:32)
[2021-09-20] MEDS ORDERED: HYDRALAZINE HCL 50MG TABLET PO SCH (21:00)
[2021-09-21] MEDS: OXYCODONE HCL 5MG TABLET PO PRN ×3 (00:21→15:37)
[2021-09-21] MEDS: HYDROCODONE/ACETAMINOPHEN 10/325MG TABLET PO PRN ×4 (01:31→21:04)
[2021-09-21] MEDS: IPRATROPIUM/ALBUTEROL 0.5-3(2.5)MG/3ML NEB HHN SCH ×3 (01:46→20:51)
[2021-09-21] MEDS: GABAPENTIN 300MG CAPSULE PO SCH ×3 (05:54→21:04)
[2021-09-21] MEDS: OXYBUTYNIN CHLORIDE 5MG TABLET PO SCH ×3 (05:54→21:04)
[2021-09-21] MEDS: LEVOTHYROXINE SODIUM 150MCG TABLET PO SCH (07:02)
[2021-09-21] MEDS: METHOCARBAMOL 500MG TABLET PO PRN ×2 (07:02→17:20)
[2021-09-21] MEDS: INSULIN LISPRO 100 UNITS/ML SUBCUT SCH ×4 (07:13→21:00)
[2021-09-21 08:00] VITALS: BP 145/68
[2021-09-21] MEDS: FERROUS SULFATE 325MG TABLET PO SCH ×3 (08:57→17:20)
[2021-09-21] MEDS: ARIPIPRAZOLE 5MG TABLET PO SCH (08:58)
[2021-09-21] MEDS: CARVEDILOL 6.25 MG TABLET PO SCH ×2 (08:58→20:30)
[2021-09-21] MEDS: METFORMIN HCL 500MG TABLET PO SCH ×2 (08:58→17:20)
[2021-09-21] MEDS: AMLODIPINE 10MG TABLET PO SCH (08:59)
[2021-09-21] MEDS: HYDRALAZINE HCL 50MG TABLET PO SCH ×2 (08:59→20:30)
[2021-09-21] MEDS: LIDOCAINE 5% PATCH TOP SCH (09:01)
[2021-09-21] MEDS ORDERED: ALBUTEROL (0.083%) 2.5MG/3ML NEB HHN PRN (09:45)
[2021-09-21] MEDS: BLOOD SUGAR DIAGNOSTIC STRIP TEST SCH ×3 (11:15→21:00)
[2021-09-21 19:40] VITALS: BP 166/66
[2021-09-21] MEDS: FAMOTIDINE 20MG TABLET PO SCH (20:28)
[2021-09-21] MEDS: ATORVASTATIN CALCIUM 40MG TABLET PO SCH (21:04)
[2021-09-22] MEDS: IPRATROPIUM/ALBUTEROL 0.5-3(2.5)MG/3ML NEB HHN SCH ×4 (01:17→21:09)
[2021-09-22] MEDS: OXYBUTYNIN CHLORIDE 5MG TABLET PO SCH ×3 (05:58→21:25)
[2021-09-22] MEDS: GABAPENTIN 300MG CAPSULE PO SCH ×3 (05:58→21:25)
[2021-09-22] MEDS: HYDROCODONE/ACETAMINOPHEN 10/325MG TABLET PO PRN ×4 (06:01→21:39)
[2021-09-22] MEDS: LEVOTHYROXINE SODIUM 150MCG TABLET PO SCH (06:04)
[2021-09-22] MEDS: BLOOD SUGAR DIAGNOSTIC STRIP TEST SCH ×4 (06:04→21:00)
[2021-09-22 07:36] VITALS: BP 136/60
[2021-09-22] MEDS: METHOCARBAMOL 500MG TABLET PO PRN ×2 (08:00→16:10)
[2021-09-22] MEDS: FERROUS SULFATE 325MG TABLET PO SCH ×3 (08:06→16:10)
[2021-09-22] MEDS: METFORMIN HCL 500MG TABLET PO SCH ×2 (08:06→16:10)
[2021-09-22] MEDS: LIDOCAINE 5% PATCH TOP SCH (08:06)
[2021-09-22] MEDS: POLYETHYLENE GLYCOL 3350 (17GM) 1 DOSE PACK PO PRN (08:06)
[2021-09-22] MEDS: CARVEDILOL 6.25 MG TABLET PO SCH ×2 (08:07→21:26)
[2021-09-22] MEDS: HYDRALAZINE HCL 50MG TABLET PO SCH ×2 (08:08→21:26)
[2021-09-22] MEDS: ARIPIPRAZOLE 5MG TABLET PO SCH (08:08)
[2021-09-22] MEDS: AMLODIPINE 10MG TABLET PO SCH (08:08)
[2021-09-22] MEDS: INSULIN LISPRO 100 UNITS/ML SUBCUT SCH ×4 (08:16→21:00)
[2021-09-22] MEDS ORDERED: DULO60CA45 PO (09:54)
[2021-09-22 20:00] VITALS: BP 146/56
[2021-09-22] MEDS: FAMOTIDINE 20MG TABLET PO SCH (21:25)
[2021-09-22] MEDS: ATORVASTATIN CALCIUM 40MG TABLET PO SCH (21:25)
[2021-09-23] MEDS: METHOCARBAMOL 500MG TABLET PO PRN ×3 (00:08→23:54)
[2021-09-23] MEDS: OXYCODONE HCL 5MG TABLET PO PRN ×3 (01:26→19:33)
[2021-09-23] MEDS: BLOOD SUGAR DIAGNOSTIC STRIP TEST SCH ×4 (06:30→21:11)
[2021-09-23] MEDS: GABAPENTIN 300MG CAPSULE PO SCH ×3 (06:32→20:56)
[2021-09-23] MEDS: OXYBUTYNIN CHLORIDE 5MG TABLET PO SCH ×3 (06:32→20:56)
[2021-09-23] MEDS: HYDROCODONE/ACETAMINOPHEN 10/325MG TABLET PO PRN ×3 (06:35→21:06)
[2021-09-23] MEDS: LEVOTHYROXINE SODIUM 150MCG TABLET PO SCH (06:35)
[2021-09-23] MEDS: IPRATROPIUM/ALBUTEROL 0.5-3(2.5)MG/3ML NEB HHN SCH ×3 (07:22→20:27)
[2021-09-23] MEDS: HYDRALAZINE HCL 50MG TABLET PO SCH ×2 (08:49→20:57)
[2021-09-23] MEDS: ARIPIPRAZOLE 5MG TABLET PO SCH (08:49)
[2021-09-23] MEDS: FERROUS SULFATE 325MG TABLET PO SCH ×3 (08:49→17:22)
[2021-09-23] MEDS: CARVEDILOL 6.25 MG TABLET PO SCH ×2 (08:50→20:57)
[2021-09-23] MEDS: METFORMIN HCL 500MG TABLET PO SCH ×2 (08:50→17:22)
[2021-09-23] MEDS: AMLODIPINE 10MG TABLET PO SCH (08:51)
[2021-09-23] MEDS: LIDOCAINE 5% PATCH TOP SCH (08:55)
[2021-09-23 08:59] VITALS: BP 131/61
[2021-09-23] MEDS: INSULIN LISPRO 100 UNITS/ML SUBCUT SCH ×4 (08:59→21:00)
[2021-09-23] MEDS ORDERED: LACTULOSE 20G/30ML UDC PO PRN (09:00)
[2021-09-23 19:36] VITALS: BP 161/81
[2021-09-23] MEDS: FAMOTIDINE 20MG TABLET PO SCH (20:54)
[2021-09-23] MEDS: ATORVASTATIN CALCIUM 40MG TABLET PO SCH (20:56)
[2021-09-24] MEDS: OXYCODONE HCL 5MG TABLET PO PRN ×3 (01:37→20:24)
[2021-09-24] MEDS: IPRATROPIUM/ALBUTEROL 0.5-3(2.5)MG/3ML NEB HHN SCH ×4 (02:00→18:00)
[2021-09-24] MEDS: OXYBUTYNIN CHLORIDE 5MG TABLET PO SCH ×3 (06:12→21:07)
[2021-09-24] MEDS: LEVOTHYROXINE SODIUM 150MCG TABLET PO SCH (06:12)
[2021-09-24] MEDS: GABAPENTIN 300MG CAPSULE PO SCH ×3 (06:12→21:07)
[2021-09-24] MEDS: BLOOD SUGAR DIAGNOSTIC STRIP TEST SCH ×4 (06:31→21:07)
[2021-09-24] MEDS: HYDROCODONE/ACETAMINOPHEN 10/325MG TABLET PO PRN ×2 (06:37→18:13)
[2021-09-24] MEDS: INSULIN LISPRO 100 UNITS/ML SUBCUT SCH ×4 (06:39→21:07)
[2021-09-24 08:00] VITALS: BP 132/50
[2021-09-24] MEDS: AMLODIPINE 10MG TABLET PO SCH (08:34)
[2021-09-24] MEDS: HYDRALAZINE HCL 50MG TABLET PO SCH ×2 (08:35→20:23)
[2021-09-24] MEDS: FERROUS SULFATE 325MG TABLET PO SCH ×3 (08:36→18:13)
[2021-09-24] MEDS: CARVEDILOL 6.25 MG TABLET PO SCH ×2 (08:36→20:23)
[2021-09-24] MEDS: METFORMIN HCL 500MG TABLET PO SCH ×2 (08:36→18:12)
[2021-09-24] MEDS: LIDOCAINE 5% PATCH TOP SCH (08:40)
[2021-09-24] MEDS: ARIPIPRAZOLE 5MG TABLET PO SCH (08:46)
[2021-09-24] MEDS: METHOCARBAMOL 500MG TABLET PO PRN ×2 (09:29→23:02)
[2021-09-24] MEDS: FAMOTIDINE 20MG TABLET PO SCH (20:22)
[2021-09-24] MEDS: ATORVASTATIN CALCIUM 40MG TABLET PO SCH (20:22)
[2021-09-25] MEDS: HYDROCODONE/ACETAMINOPHEN 10/325MG TABLET PO PRN ×3 (01:20→18:32)
[2021-09-25] MEDS: OXYBUTYNIN CHLORIDE 5MG TABLET PO SCH ×3 (05:42→21:48)
[2021-09-25] MEDS: GABAPENTIN 300MG CAPSULE PO SCH ×3 (05:42→21:47)
[2021-09-25] MEDS: LEVOTHYROXINE SODIUM 150MCG TABLET PO SCH (05:46)
[2021-09-25] MEDS: BLOOD SUGAR DIAGNOSTIC STRIP TEST SCH ×4 (06:20→21:37)
[2021-09-25] MEDS: OXYCODONE HCL 5MG TABLET PO PRN ×2 (06:21→21:34)
[2021-09-25] MEDS: INSULIN LISPRO 100 UNITS/ML SUBCUT SCH ×4 (06:33→21:46)
[2021-09-25] MEDS: IPRATROPIUM/ALBUTEROL 0.5-3(2.5)MG/3ML NEB HHN SCH ×4 (07:36→20:58)
[2021-09-25 08:00] VITALS: BP 137/58
[2021-09-25] MEDS: ARIPIPRAZOLE 5MG TABLET PO SCH (08:56)
[2021-09-25] MEDS: FERROUS SULFATE 325MG TABLET PO SCH ×3 (08:56→17:43)
[2021-09-25] MEDS: METFORMIN HCL 500MG TABLET PO SCH ×2 (08:56→17:43)
[2021-09-25] MEDS: HYDRALAZINE HCL 50MG TABLET PO SCH ×2 (08:57→21:31)
[2021-09-25] MEDS: CARVEDILOL 6.25 MG TABLET PO SCH ×2 (08:57→21:32)
[2021-09-25] MEDS: AMLODIPINE 10MG TABLET PO SCH (08:58)
[2021-09-25] MEDS: METHOCARBAMOL 500MG TABLET PO PRN ×2 (09:03→21:33)
[2021-09-25] MEDS: LIDOCAINE 5% PATCH TOP SCH (09:04)
[2021-09-25 20:00] VITALS: BP 154/66
[2021-09-25] MEDS: FAMOTIDINE 20MG TABLET PO SCH (21:27)
[2021-09-25] MEDS: ATORVASTATIN CALCIUM 40MG TABLET PO SCH (21:27)
[2021-09-26] MEDS: IPRATROPIUM/ALBUTEROL 0.5-3(2.5)MG/3ML NEB HHN SCH ×4 (02:15→21:41)
[2021-09-26] MEDS: GABAPENTIN 300MG CAPSULE PO SCH ×3 (06:13→21:34)
[2021-09-26] MEDS: OXYBUTYNIN CHLORIDE 5MG TABLET PO SCH ×3 (06:13→21:34)
[2021-09-26] MEDS: LEVOTHYROXINE SODIUM 150MCG TABLET PO SCH (06:13)
[2021-09-26] MEDS: HYDROCODONE/ACETAMINOPHEN 10/325MG TABLET PO PRN ×2 (06:18→18:12)
[2021-09-26] MEDS: BLOOD SUGAR DIAGNOSTIC STRIP TEST SCH ×4 (06:31→21:32)
[2021-09-26 08:00] VITALS: BP 118/55
[2021-09-26] MEDS: INSULIN LISPRO 100 UNITS/ML SUBCUT SCH ×4 (09:00→21:00)
[2021-09-26] MEDS: FERROUS SULFATE 325MG TABLET PO SCH ×3 (09:02→17:38)
[2021-09-26] MEDS: ARIPIPRAZOLE 5MG TABLET PO SCH (09:03)
[2021-09-26] MEDS: HYDRALAZINE HCL 50MG TABLET PO SCH ×2 (09:03→21:31)
[2021-09-26] MEDS: METFORMIN HCL 500MG TABLET PO SCH ×2 (09:04→17:38)
[2021-09-26] MEDS: AMLODIPINE 10MG TABLET PO SCH (09:04)
[2021-09-26] MEDS: CARVEDILOL 6.25 MG TABLET PO SCH ×2 (09:05→21:31)
[2021-09-26] MEDS: LIDOCAINE 5% PATCH TOP SCH (09:06)
[2021-09-26] MEDS: METHOCARBAMOL 500MG TABLET PO PRN ×2 (12:02→21:33)
[2021-09-26] MEDS: OXYCODONE HCL 5MG TABLET PO PRN ×2 (12:51→21:34)
[2021-09-26] MEDS: CALCIUM CARBONATE 500MG TABLET CHEW PO PRN (14:59)
[2021-09-26 20:00] VITALS: BP 123/45
[2021-09-26] MEDS: GUAIFENESIN 600MG ER TABLET PO SCH (21:30)
[2021-09-26] MEDS: ATORVASTATIN CALCIUM 40MG TABLET PO SCH (21:30)
[2021-09-26] MEDS: FAMOTIDINE 20MG TABLET PO SCH (21:30)
[2021-09-27] MEDS: IPRATROPIUM/ALBUTEROL 0.5-3(2.5)MG/3ML NEB HHN SCH ×4 (03:03→20:55)
[2021-09-27] MEDS: LEVOTHYROXINE SODIUM 150MCG TABLET PO SCH (07:14)
[2021-09-27] MEDS: BLOOD SUGAR DIAGNOSTIC STRIP TEST SCH ×4 (07:14→21:45)
[2021-09-27] MEDS: GABAPENTIN 300MG CAPSULE PO SCH ×3 (07:14→21:27)
[2021-09-27] MEDS: OXYBUTYNIN CHLORIDE 5MG TABLET PO SCH ×3 (07:14→21:27)
[2021-09-27] MEDS: METHOCARBAMOL 500MG TABLET PO PRN ×2 (07:27→17:11)
[2021-09-27] MEDS: HYDROCODONE/ACETAMINOPHEN 10/325MG TABLET PO PRN ×2 (07:33→17:12)
[2021-09-27 08:00] VITALS: BP 118/70
[2021-09-27] MEDS: INSULIN LISPRO 100 UNITS/ML SUBCUT SCH ×4 (09:00→21:00)
[2021-09-27] MEDS: ARIPIPRAZOLE 5MG TABLET PO SCH (09:16)
[2021-09-27] MEDS: HYDRALAZINE HCL 50MG TABLET PO SCH ×2 (09:16→21:34)
[2021-09-27] MEDS: METFORMIN HCL 500MG TABLET PO SCH ×2 (09:17→17:11)
[2021-09-27] MEDS: CARVEDILOL 6.25 MG TABLET PO SCH ×2 (09:18→21:35)
[2021-09-27] MEDS: FERROUS SULFATE 325MG TABLET PO SCH ×3 (09:18→17:11)
[2021-09-27] MEDS: AMLODIPINE 10MG TABLET PO SCH (09:19)
[2021-09-27] MEDS: GUAIFENESIN 600MG ER TABLET PO SCH ×2 (09:19→21:26)
[2021-09-27] MEDS: LIDOCAINE 5% PATCH TOP SCH (09:19)
[2021-09-27] MEDS: POLYETHYLENE GLYCOL 3350 (17GM) 1 DOSE PACK PO PRN (12:35)
[2021-09-27] MEDS: OXYCODONE HCL 5MG TABLET PO PRN ×2 (12:37→21:36)
[2021-09-27] MEDS: CALCIUM CARBONATE 500MG TABLET CHEW PO PRN (13:46)
[2021-09-27 20:00] VITALS: BP 147/70
[2021-09-27] MEDS: ATORVASTATIN CALCIUM 40MG TABLET PO SCH (21:26)
[2021-09-27] MEDS: FAMOTIDINE 20MG TABLET PO SCH (21:26)
[2021-09-28] MEDS: IPRATROPIUM/ALBUTEROL 0.5-3(2.5)MG/3ML NEB HHN SCH ×4 (01:25→21:24)
[2021-09-28] MEDS: OXYBUTYNIN CHLORIDE 5MG TABLET PO SCH ×3 (06:59→22:08)
[2021-09-28] MEDS: GABAPENTIN 300MG CAPSULE PO SCH ×3 (06:59→22:08)
[2021-09-28] MEDS: LEVOTHYROXINE SODIUM 150MCG TABLET PO SCH (07:00)
[2021-09-28] MEDS: METHOCARBAMOL 500MG TABLET PO PRN ×2 (07:15→17:09)
[2021-09-28] MEDS: BLOOD SUGAR DIAGNOSTIC STRIP TEST SCH ×4 (07:15→21:00)
[2021-09-28] MEDS: HYDROCODONE/ACETAMINOPHEN 10/325MG TABLET PO PRN ×3 (07:15→22:08)
[2021-09-28 08:00] VITALS: BP 159/64
[2021-09-28] MEDS: HYDRALAZINE HCL 50MG TABLET PO SCH (08:48)
[2021-09-28] MEDS: ARIPIPRAZOLE 5MG TABLET PO SCH (08:49)
[2021-09-28] MEDS: FERROUS SULFATE 325MG TABLET PO SCH ×3 (08:49→17:08)
[2021-09-28] MEDS: AMLODIPINE 10MG TABLET PO SCH (08:50)
[2021-09-28] MEDS: METFORMIN HCL 500MG TABLET PO SCH ×2 (08:51→17:08)
[2021-09-28] MEDS: CARVEDILOL 6.25 MG TABLET PO SCH ×2 (08:52→21:15)
[2021-09-28] MEDS: LIDOCAINE 5% PATCH TOP SCH (08:55)
[2021-09-28] MEDS: INSULIN LISPRO 100 UNITS/ML SUBCUT SCH ×4 (09:23→21:00)
[2021-09-28] MEDS ORDERED: LOSARTAN POTASSIUM 50 MG TABLET PO SCH (09:45)
[2021-09-28] MEDS: GUAIFENESIN 600MG ER TABLET PO SCH ×2 (10:32→21:15)
[2021-09-28] MEDS: OXYCODONE HCL 5MG TABLET PO PRN (10:44)
[2021-09-28] MEDS: CALCIUM CARBONATE 500MG TABLET CHEW PO PRN (13:25)
[2021-09-28] MEDS: POLYETHYLENE GLYCOL 3350 (17GM) 1 DOSE PACK PO PRN (13:53)
[2021-09-28] MEDS: CHLORTHALIDONE 25MG TABLET PO SCH (17:25)
[2021-09-28 20:12] VITALS: BP 157/67
[2021-09-28] MEDS: FAMOTIDINE 20MG TABLET PO SCH (21:15)
[2021-09-28] MEDS: ATORVASTATIN CALCIUM 40MG TABLET PO SCH (21:15)
[2021-09-28] MEDS: HYDRALAZINE HCL 100MG TABLET PO SCH (21:15)
[2021-09-29] MEDS: METHOCARBAMOL 500MG TABLET PO PRN ×2 (01:03→14:39)
[2021-09-29] MEDS: BLOOD SUGAR DIAGNOSTIC STRIP TEST SCH ×4 (06:30→21:03)
[2021-09-29] MEDS: GABAPENTIN 300MG CAPSULE PO SCH ×3 (06:40→21:01)
[2021-09-29] MEDS: HYDROCODONE/ACETAMINOPHEN 10/325MG TABLET PO PRN ×2 (06:40→17:27)
[2021-09-29] MEDS: OXYBUTYNIN CHLORIDE 5MG TABLET PO SCH ×3 (06:40→21:02)
[2021-09-29] MEDS: LEVOTHYROXINE SODIUM 150MCG TABLET PO SCH (06:44)
[2021-09-29] MEDS: IPRATROPIUM/ALBUTEROL 0.5-3(2.5)MG/3ML NEB HHN SCH ×3 (07:41→20:20)
[2021-09-29 08:00] VITALS: BP 158/65
[2021-09-29] MEDS: FERROUS SULFATE 325MG TABLET PO SCH ×3 (08:59→17:22)
[2021-09-29] MEDS: ARIPIPRAZOLE 5MG TABLET PO SCH (09:00)
[2021-09-29] MEDS: HYDRALAZINE HCL 100MG TABLET PO SCH ×2 (09:01→21:02)
[2021-09-29] MEDS: CHLORTHALIDONE 25MG TABLET PO SCH (09:02)
[2021-09-29] MEDS: AMLODIPINE 10MG TABLET PO SCH (09:03)
[2021-09-29] MEDS: CARVEDILOL 6.25 MG TABLET PO SCH ×2 (09:04→21:02)
[2021-09-29] MEDS: GUAIFENESIN 600MG ER TABLET PO SCH ×2 (09:04→21:02)
[2021-09-29] MEDS: METFORMIN HCL 500MG TABLET PO SCH ×2 (09:04→17:21)
[2021-09-29] MEDS: LIDOCAINE 5% PATCH TOP SCH (09:06)
[2021-09-29] MEDS: INSULIN LISPRO 100 UNITS/ML SUBCUT SCH ×4 (09:10→21:00)
[2021-09-29] MEDS: OXYCODONE HCL 5MG TABLET PO PRN (11:20)
[2021-09-29 20:00] VITALS: BP 148/61
[2021-09-29] MEDS: FAMOTIDINE 20MG TABLET PO SCH (21:02)
[2021-09-29] MEDS: ATORVASTATIN CALCIUM 40MG TABLET PO SCH (21:02)
[2021-09-30] MEDS: IPRATROPIUM/ALBUTEROL 0.5-3(2.5)MG/3ML NEB HHN SCH ×4 (01:20→20:50)
[2021-09-30] MEDS: HYDROCODONE/ACETAMINOPHEN 10/325MG TABLET PO PRN ×2 (05:04→19:38)
[2021-09-30] MEDS: OXYBUTYNIN CHLORIDE 5MG TABLET PO SCH ×3 (06:11→21:49)
[2021-09-30] MEDS: METHOCARBAMOL 500MG TABLET PO PRN ×2 (06:11→14:42)
[2021-09-30] MEDS: LEVOTHYROXINE SODIUM 150MCG TABLET PO SCH (06:11)
[2021-09-30] MEDS: GABAPENTIN 300MG CAPSULE PO SCH ×3 (06:11→21:50)
[2021-09-30] MEDS: INSULIN LISPRO 100 UNITS/ML SUBCUT SCH ×4 (06:12→21:00)
[2021-09-30] MEDS: BLOOD SUGAR DIAGNOSTIC STRIP TEST SCH ×4 (06:12→21:58)
[2021-09-30 08:00] VITALS: BP 150/65
[2021-09-30 08:06] LABS: BASOPHILS % 0.6 % (0.0-2.0); EOSINOPHILS % 2.9 % (0.0-5.0); HEMATOCRIT. 27.1 % (36.0-48.0); HEMOGLOBIN. 8.8 g/dL (12.0-16.0); LYMPHOCYTES % 32.5 % (20.0-50.0); MEAN CORPUSCULAR HEMOGLOBIN 26.3 pg (28.0-32.0); MEAN CORPUSCULAR VOLUME 80.9 fL (81.0-99.0); MEAN PLATELET VOLUME 8.1 fl (7.4-10.4); MONOCYTES % 10.2 % (2.0-8.0); NEUTROPHILS % 53.8 % (40.0-76.0); PLATELET 326 x1000/uL (130-400); RED BLOOD CELL COUNT 3.35 mill/uL (4.2-5.4); RED CELL DISTRIBUTION WIDTH 14.9 % (11.6-14.6)
[2021-09-30 08:18] LABS: CHLORIDE 102 mEq/L (98-107)
[2021-09-30 08:36] LABS: TOTAL IRON BINDING CAPACITY 209 ug/dL (250-450)
[2021-09-30 08:48] LABS: FOLIC ACID (FOLATE) SERUM 7.8 ng/mL (>5.38)
[2021-09-30] MEDS: ARIPIPRAZOLE 5MG TABLET PO SCH (09:26)
[2021-09-30] MEDS: HYDRALAZINE HCL 100MG TABLET PO SCH ×2 (09:27→21:48)
[2021-09-30] MEDS: FERROUS SULFATE 325MG TABLET PO SCH ×3 (09:27→18:14)
[2021-09-30] MEDS: LIDOCAINE 5% PATCH TOP SCH (09:27)
[2021-09-30] MEDS: AMLODIPINE 10MG TABLET PO SCH (09:28)
[2021-09-30] MEDS: GUAIFENESIN 600MG ER TABLET PO SCH ×2 (09:28→21:50)
[2021-09-30] MEDS: METFORMIN HCL 500MG TABLET PO SCH ×2 (09:28→18:14)
[2021-09-30] MEDS: CARVEDILOL 6.25 MG TABLET PO SCH ×2 (09:28→21:49)
[2021-09-30] MEDS: CHLORTHALIDONE 25MG TABLET PO SCH (09:28)
[2021-09-30] MEDS: OXYCODONE HCL 5MG TABLET PO PRN (10:42)
[2021-09-30 11:34] VITALS: BP 150/65
[2021-09-30 20:00] VITALS: BP 148/61
[2021-09-30] MEDS: FAMOTIDINE 20MG TABLET PO SCH (21:50)
[2021-09-30] MEDS: ATORVASTATIN CALCIUM 40MG TABLET PO SCH (21:54)
[2021-10-01] MEDS: METHOCARBAMOL 500MG TABLET PO PRN ×3 (00:07→18:17)
[2021-10-01] MEDS: HYDROCODONE/ACETAMINOPHEN 10/325MG TABLET PO PRN ×4 (01:06→18:17)
[2021-10-01] MEDS: IPRATROPIUM/ALBUTEROL 0.5-3(2.5)MG/3ML NEB HHN SCH ×4 (01:12→19:42)
[2021-10-01] MEDS: GABAPENTIN 300MG CAPSULE PO SCH ×3 (06:19→21:30)
[2021-10-01] MEDS: LEVOTHYROXINE SODIUM 150MCG TABLET PO SCH (06:19)
[2021-10-01] MEDS: OXYBUTYNIN CHLORIDE 5MG TABLET PO SCH ×3 (06:19→21:30)
[2021-10-01] MEDS: BLOOD SUGAR DIAGNOSTIC STRIP TEST SCH ×4 (06:27→21:30)
[2021-10-01 08:00] VITALS: BP 120/54
[2021-10-01] MEDS: INSULIN LISPRO 100 UNITS/ML SUBCUT SCH ×4 (08:39→21:00)
[2021-10-01] MEDS: ARIPIPRAZOLE 5MG TABLET PO SCH (09:04)
[2021-10-01] MEDS: FERROUS SULFATE 325MG TABLET PO SCH ×3 (09:04→16:55)
[2021-10-01] MEDS: METFORMIN HCL 500MG TABLET PO SCH ×2 (09:04→16:56)
[2021-10-01] MEDS: LIDOCAINE 5% PATCH TOP SCH (09:04)
[2021-10-01] MEDS: HYDRALAZINE HCL 100MG TABLET PO SCH ×2 (09:05→20:18)
[2021-10-01] MEDS: ASCORBIC ACID 500 MG TABLET PO SCH (09:06)
[2021-10-01] MEDS: CARVEDILOL 6.25 MG TABLET PO SCH ×2 (09:06→20:18)
[2021-10-01] MEDS: AMLODIPINE 10MG TABLET PO SCH (09:06)
[2021-10-01] MEDS: OXYCODONE HCL 5MG TABLET PO PRN ×2 (09:06→20:18)
[2021-10-01] MEDS: CHLORTHALIDONE 25MG TABLET PO SCH (09:07)
[2021-10-01] MEDS: GUAIFENESIN 600MG ER TABLET PO SCH ×2 (09:07→20:18)
[2021-10-01] MEDS: ONDANSETRON 4MG ODT PO PRN (14:47)
[2021-10-01 20:02] VITALS: BP 137/53
[2021-10-01] MEDS: FAMOTIDINE 20MG TABLET PO SCH (20:17)
[2021-10-01] MEDS: ATORVASTATIN CALCIUM 40MG TABLET PO SCH (20:18)
[2021-10-01] MEDS: CALCIUM CARBONATE 500MG TABLET CHEW PO PRN (21:43)
[2021-10-02] MEDS: OXYBUTYNIN CHLORIDE 5MG TABLET PO SCH ×3 (05:22→21:27)
[2021-10-02] MEDS: GABAPENTIN 300MG CAPSULE PO SCH ×3 (05:22→21:27)
[2021-10-02] MEDS: HYDROCODONE/ACETAMINOPHEN 10/325MG TABLET PO PRN ×3 (05:23→15:18)
[2021-10-02] MEDS: LEVOTHYROXINE SODIUM 150MCG TABLET PO SCH (06:14)
[2021-10-02] MEDS: METHOCARBAMOL 500MG TABLET PO PRN ×2 (06:14→15:17)
[2021-10-02] MEDS: BLOOD SUGAR DIAGNOSTIC STRIP TEST SCH ×4 (06:19→21:24)
[2021-10-02] MEDS: INSULIN LISPRO 100 UNITS/ML SUBCUT SCH ×4 (06:56→21:39)
[2021-10-02 08:00] VITALS: BP 126/56
[2021-10-02] MEDS: LIDOCAINE 5% PATCH TOP SCH (09:00)
[2021-10-02] MEDS: IPRATROPIUM/ALBUTEROL 0.5-3(2.5)MG/3ML NEB HHN SCH ×3 (09:22→20:12)
[2021-10-02] MEDS: FERROUS SULFATE 325MG TABLET PO SCH ×3 (09:31→16:53)
[2021-10-02] MEDS: CARVEDILOL 6.25 MG TABLET PO SCH ×2 (09:32→21:26)
[2021-10-02] MEDS: CHLORTHALIDONE 25MG TABLET PO SCH (09:32)
[2021-10-02] MEDS: ASCORBIC ACID 500 MG TABLET PO SCH (09:32)
[2021-10-02] MEDS: ARIPIPRAZOLE 5MG TABLET PO SCH (09:32)
[2021-10-02] MEDS: GUAIFENESIN 600MG ER TABLET PO SCH ×2 (09:32→21:24)
[2021-10-02] MEDS: HYDRALAZINE HCL 100MG TABLET PO SCH ×2 (09:33→21:25)
[2021-10-02] MEDS: AMLODIPINE 10MG TABLET PO SCH (09:33)
[2021-10-02] MEDS: METFORMIN HCL 500MG TABLET PO SCH ×2 (09:39→16:53)
[2021-10-02 19:44] VITALS: BP 152/74
[2021-10-02] MEDS: FAMOTIDINE 20MG TABLET PO SCH (21:25)
[2021-10-02] MEDS: ATORVASTATIN CALCIUM 40MG TABLET PO SCH (21:25)
[2021-10-02] MEDS: OXYCODONE HCL 5MG TABLET PO PRN (21:27)
[2021-10-02] MEDS: POLYETHYLENE GLYCOL 3350 (17GM) 1 DOSE PACK PO PRN (21:36)
[2021-10-03] MEDS: METHOCARBAMOL 500MG TABLET PO PRN (00:23)
[2021-10-03] MEDS: HYDROCODONE/ACETAMINOPHEN 10/325MG TABLET PO PRN ×2 (00:24→09:26)
[2021-10-03] MEDS: IPRATROPIUM/ALBUTEROL 0.5-3(2.5)MG/3ML NEB HHN SCH ×3 (02:40→14:01)
[2021-10-03] MEDS: GABAPENTIN 300MG CAPSULE PO SCH (06:17)
[2021-10-03] MEDS: OXYBUTYNIN CHLORIDE 5MG TABLET PO SCH (06:17)
[2021-10-03] MEDS: LEVOTHYROXINE SODIUM 150MCG TABLET PO SCH (06:17)
[2021-10-03] MEDS: OXYCODONE HCL 5MG TABLET PO PRN ×6 (06:22→13:42)
[2021-10-03] MEDS: BLOOD SUGAR DIAGNOSTIC STRIP TEST SCH ×2 (06:31→11:15)
[2021-10-03] MEDS: INSULIN LISPRO 100 UNITS/ML SUBCUT SCH ×2 (07:00→12:43)
[2021-10-03 08:00] VITALS: BP 128/49
[2021-10-03] MEDS: CHLORTHALIDONE 25MG TABLET PO SCH (08:50)
[2021-10-03] MEDS: GUAIFENESIN 600MG ER TABLET PO SCH (08:50)
[2021-10-03] MEDS: METFORMIN HCL 500MG TABLET PO SCH (08:50)
[2021-10-03] MEDS: FERROUS SULFATE 325MG TABLET PO SCH ×2 (08:50→12:40)
[2021-10-03] MEDS: HYDRALAZINE HCL 100MG TABLET PO SCH (08:51)
[2021-10-03] MEDS: ASCORBIC ACID 500 MG TABLET PO SCH (08:52)
[2021-10-03] MEDS: AMLODIPINE 10MG TABLET PO SCH (08:52)
[2021-10-03] MEDS: CARVEDILOL 6.25 MG TABLET PO SCH (08:52)
[2021-10-03] MEDS: ARIPIPRAZOLE 5MG TABLET PO SCH (08:53)
[2021-10-03] MEDS: LIDOCAINE 5% PATCH TOP SCH (08:54)
[2021-10-03 13:42] VITALS: BP 128/63
[2021-10-05 19:10] LABS: 25-HYDROXY VITAMIN D3 14 ng/mL (.)
== END 2021-10-03 15:58 | disposition home health service (06) | DRG 40 ==
PROVIDERS: ADMIT Physical Medicine & Rehabilitation Spinal Cord Injury Medicine; ATTEND Internal Medicine
DX: S14.109A Unspecified injury at unspecified level of cervical spinal cord, initial encounter (principal); G93.41 Metabolic encephalopathy; G82.50 Quadriplegia, unspecified; G97.52 Postprocedural hemorrhage of a nervous system organ or structure following other procedure; I50.30 Unspecified diastolic (congestive) heart failure; I13.0 Hypertensive heart and chronic kidney disease with heart failure and stage 1 through stage 4 chronic kidney disease, or unspecified chronic kidney disease; E11.22 Type 2 diabetes mellitus with diabetic chronic kidney disease; D64.9 Anemia, unspecified; M48.02 Spinal stenosis, cervical region; S32.10XA Unspecified fracture of sacrum, initial encounter for closed fracture; E03.9 Hypothyroidism, unspecified; E11.42 Type 2 diabetes mellitus with diabetic polyneuropathy; E11.610 Type 2 diabetes mellitus with diabetic neuropathic arthropathy; J98.11 Atelectasis; M16.11 Unilateral primary osteoarthritis, right hip; M48.061 Spinal stenosis, lumbar region without neurogenic claudication; N18.9 Chronic kidney disease, unspecified; R13.10 Dysphagia, unspecified; Z79.4 Long term (current) use of insulin; Z82.49 Family history of ischemic heart disease and other diseases of the circulatory system; Z86.73 Personal history of transient ischemic attack (TIA), and cerebral infarction without residual deficits; Z89.422 Acquired absence of other left toe(s); Y92.000 Kitchen of unspecified non-institutional (private) residence as the place of occurrence of the external cause; W01.0XXA Fall on same level from slipping, tripping and stumbling without subsequent striking against object, initial encounter; Y93.89 Activity, other specified; Y99.8 Other external cause status; M50.10 Cervical disc disorder with radiculopathy, unspecified cervical region; G47.33 Obstructive sleep apnea (adult) (pediatric); E66.9 Obesity, unspecified; E78.5 Hyperlipidemia, unspecified; E61.1 Iron deficiency; M47.26 Other spondylosis with radiculopathy, lumbar region; E11.65 Type 2 diabetes mellitus with hyperglycemia; I16.1 Hypertensive emergency; G89.29 Other chronic pain; Z68.41 Body mass index [BMI] 40.0-44.9, adult; R53.81 Other malaise; M79.609 Pain in unspecified limb
CPT/HCPCS: 36415; 71045; 72220; 73502; 80048; 80053; 82306; 82607; 82728; 82746; 82962; 83036; 83540; 83550; 84134; 84443; 85025; 92523; 92610; 93970; 94640; 97110; 97116; 97162; 97166; 97530; 97535; J1815; J2270; L0172; Q0162

== ENCOUNTER 2021-10-15 20:10 | Inpatient (IN) | payer MEDICAID ==
[~2021-10-15] VITALS: Ht 162.6 cm; Wt 109.3 kg
[~2021-10-15 20:10] MED LIST changes: +DULO60CA45 PO
[2021-10-15] MEDS ORDERED: VANCOMYCIN 1G PREMIX 200 ML IV STA (21:33)
[2021-10-15] MEDS ORDERED: KETOROLAC 15MG/ML VIAL IV ONE (21:45)
[2021-10-15 23:13] LABS: BASOPHILS % 1.2 % (0.0-2.0); EOSINOPHILS % 1.7 % (0.0-5.0); HEMATOCRIT. 32.5 % (36.0-48.0); HEMOGLOBIN. 10.3 g/dL (12.0-16.0); LYMPHOCYTES % 23.3 % (20.0-50.0); MEAN CORPUSCULAR HEMOGLOBIN 25.6 pg (28.0-32.0); MEAN CORPUSCULAR VOLUME 80.2 fL (81.0-99.0); MEAN PLATELET VOLUME 7.8 fl (7.4-10.4); MONOCYTES % 8.5 % (2.0-8.0); NEUTROPHILS % 65.3 % (40.0-76.0); PLATELET 386 x1000/uL (130-400); RED BLOOD CELL COUNT 4.05 mill/uL (4.2-5.4); RED CELL DISTRIBUTION WIDTH 15.3 % (11.6-14.6)
[2021-10-15 23:23] LABS: PROTHROMBIN TIME 10.9 sec (9.6-11.0)
[2021-10-15 23:27] LABS: CHLORIDE 106 mEq/L (98-107)
[2021-10-16] MEDS ORDERED: MORPHINE SULFATE 4 MG/ML CPJ (NOT FOR IM USE) IV ONE (01:30)
[2021-10-16] MEDS ORDERED: MORPHINE SULFATE 2 MG/ML CPJ (NOT FOR IM USE) IV SCH (07:15)
[2021-10-16 08:30] VITALS: BP 179/71
[2021-10-16] MEDS ORDERED: DEXTROSE 50% WATER 50ML SYRINGE IV PRN (09:15)
[2021-10-16] MEDS ORDERED: HYDROCODONE/ACETAMINOPHEN 5/325MG TABLET PO PRN (09:15)
[2021-10-16] MEDS ORDERED: ONDANSETRON HCL 4MG/2ML INJ IV PRN (09:15)
[2021-10-16 10:13] VITALS: BP 165/81
[2021-10-16] MEDS ORDERED: VANCOMYCIN 1G PREMIX 200 ML IV SCH (11:00)
[2021-10-16] MEDS ORDERED: LEVOFLOXACIN 500MG PREMIX 100 ML IV SCH (11:00)
[2021-10-16 12:00] VITALS: BP 205/90
[2021-10-16] MEDS: INSULIN LISPRO 100 UNITS/ML SUBCUT SCH ×3 (12:27→21:51)
[2021-10-16] MEDS: BLOOD SUGAR DIAGNOSTIC STRIP TEST SCH ×3 (12:27→21:54)
[2021-10-16] MEDS: AMLODIPINE 10MG TABLET PO SCH (13:24)
[2021-10-16] MEDS ORDERED: NALOXONE HCL 0.4MG/ML VIAL IV PRN (13:30)
[2021-10-16] MEDS ORDERED: HYDRALAZINE HCL 50MG TABLET PO SCH (14:00)
[2021-10-16 16:00] VITALS: BP 165/68
[2021-10-16] MEDS: HYDROCODONE/ACETAMINOPHEN 10/325MG TABLET PO PRN ×2 (16:31→21:25)
[2021-10-16 20:00] VITALS: BP 162/76
[2021-10-16] MEDS: HYDRALAZINE HCL 50MG TABLET PO SCH (21:27)
[2021-10-16] MEDS: VANCOMYCIN 1GM PMX (XELLIA) 200 ML IV SCH (21:55)
[2021-10-17] VITALS: BP 160/80
[2021-10-17] MEDS: HYDROCODONE/ACETAMINOPHEN 10/325MG TABLET PO PRN ×5 (01:29→20:29)
[2021-10-17 04:00] VITALS: BP 145/67
[2021-10-17] MEDS: HYDRALAZINE HCL 50MG TABLET PO SCH ×3 (05:27→20:32)
[2021-10-17] MEDS: BLOOD SUGAR DIAGNOSTIC STRIP TEST SCH ×4 (07:20→20:33)
[2021-10-17 08:00] VITALS: BP 135/65
[2021-10-17] MEDS: AMLODIPINE 10MG TABLET PO SCH (08:43)
[2021-10-17] MEDS: INSULIN LISPRO 100 UNITS/ML SUBCUT SCH ×4 (08:45→20:30)
[2021-10-17 12:00] VITALS: BP 156/64
[2021-10-17] MEDS: LEVOFLOXACIN 500MG PREMIX 100 ML IV SCH (15:30)
[2021-10-17 16:00] VITALS: BP 146/67
[2021-10-17] MEDS: VANCOMYCIN 1GM PMX (XELLIA) 200 ML IV SCH ×2 (17:57→18:03)
[2021-10-17 20:00] VITALS: BP 153/68
[2021-10-17] MEDS: OXYCODONE HCL 10MG TABLET SR 12HR PO SCH (21:45)
[2021-10-18] VITALS: BP 142/55
[2021-10-18] MEDS: HYDROCODONE/ACETAMINOPHEN 10/325MG TABLET PO PRN ×6 (00:04→23:52)
[2021-10-18 04:00] VITALS: BP 121/52
[2021-10-18] MEDS: HYDRALAZINE HCL 50MG TABLET PO SCH ×3 (06:40→22:24)
[2021-10-18] MEDS: BLOOD SUGAR DIAGNOSTIC STRIP TEST SCH ×4 (06:41→21:00)
[2021-10-18 08:00] VITALS: BP 150/62
[2021-10-18] MEDS: OXYCODONE HCL 10MG TABLET SR 12HR PO SCH ×2 (08:20→22:10)
[2021-10-18] MEDS: AMLODIPINE 10MG TABLET PO SCH (08:20)
[2021-10-18] MEDS: INSULIN LISPRO 100 UNITS/ML SUBCUT SCH ×4 (08:24→21:00)
[2021-10-18 12:00] VITALS: BP 146/57
[2021-10-18] MEDS: VANCOMYCIN 1GM PMX (XELLIA) 200 ML IV SCH (12:59)
[2021-10-18] MEDS: LEVOFLOXACIN 500MG PREMIX 100 ML IV SCH (14:53)
[2021-10-18 16:00] VITALS: BP 170/70
[2021-10-18] MEDS ORDERED: LOSARTAN POTASSIUM 50 MG TABLET PO SCH (19:00)
[2021-10-18 20:00] VITALS: BP 139/85
[2021-10-18] MEDS: CLONIDINE 0.1MG TABLET PO SCH (22:08)
[2021-10-19] VITALS: BP 146/65
[2021-10-19 04:00] VITALS: BP 134/58
[2021-10-19] MEDS: HYDROCODONE/ACETAMINOPHEN 10/325MG TABLET PO PRN ×4 (04:11→20:11)
[2021-10-19] MEDS: VANCOMYCIN 1GM PMX (XELLIA) 200 ML IV SCH ×2 (05:58→23:49)
[2021-10-19] MEDS: HYDRALAZINE HCL 50MG TABLET PO SCH ×2 (05:59→13:29)
[2021-10-19] MEDS: BLOOD SUGAR DIAGNOSTIC STRIP TEST SCH ×4 (05:59→21:00)
[2021-10-19 08:00] VITALS: BP_SYST 136; BP_SYST 139; BP_DIAS 54; BP_DIAS 57
[2021-10-19] MEDS: AMLODIPINE 10MG TABLET PO SCH (09:06)
[2021-10-19] MEDS: CLONIDINE 0.1MG TABLET PO SCH ×2 (09:06→17:00)
[2021-10-19] MEDS: OXYCODONE HCL 10MG TABLET SR 12HR PO SCH ×2 (09:07→21:17)
[2021-10-19] MEDS: INSULIN LISPRO 100 UNITS/ML SUBCUT SCH ×4 (09:14→21:00)
[2021-10-19 13:32] LABS: CHLORIDE 105 mEq/L (98-107)
[2021-10-19] MEDS: LEVOFLOXACIN 500MG PREMIX 100 ML IV SCH (15:07)
[2021-10-19] MEDS ORDERED: LEVO500T90 MT (18:06)
[2021-10-19 20:00] VITALS: BP 143/67
[2021-10-19] MEDS: HYDRALAZINE HCL 100MG TABLET PO SCH (21:17)
[2021-10-20] VITALS: BP 142/67
[2021-10-20] MEDS: HYDROCODONE/ACETAMINOPHEN 10/325MG TABLET PO PRN ×5 (00:06→22:35)
[2021-10-20 04:00] VITALS: BP 159/76
[2021-10-20] MEDS: HYDRALAZINE HCL 100MG TABLET PO SCH ×3 (06:24→21:01)
[2021-10-20] MEDS: BLOOD SUGAR DIAGNOSTIC STRIP TEST SCH ×4 (06:28→21:01)
[2021-10-20] MEDS: INSULIN LISPRO 100 UNITS/ML SUBCUT SCH ×4 (07:50→22:34)
[2021-10-20] MEDS: CLONIDINE 0.1MG TABLET PO SCH ×2 (08:57→18:17)
[2021-10-20] MEDS: OXYCODONE HCL 10MG TABLET SR 12HR PO SCH ×2 (08:58→21:00)
[2021-10-20] MEDS: AMLODIPINE 10MG TABLET PO SCH (09:00)
[2021-10-20] MEDS ORDERED: LEVOFLOXACIN 500MG TABLET PO SCH (11:00)
[2021-10-20] MEDS: VANCOMYCIN 1GM PMX (XELLIA) 200 ML IV SCH (18:16)
[2021-10-20 20:00] VITALS: BP 158/71
[2021-10-21] VITALS: BP 137/57
[2021-10-21] MEDS: HYDROCODONE/ACETAMINOPHEN 10/325MG TABLET PO PRN ×5 (02:35→23:08)
[2021-10-21 04:00] VITALS: BP 155/59
[2021-10-21] MEDS: HYDRALAZINE HCL 100MG TABLET PO SCH ×3 (06:33→21:17)
[2021-10-21] MEDS: BLOOD SUGAR DIAGNOSTIC STRIP TEST SCH ×4 (07:20→21:00)
[2021-10-21] MEDS: INSULIN LISPRO 100 UNITS/ML SUBCUT SCH ×4 (07:50→21:00)
[2021-10-21 08:00] VITALS: BP 154/57
[2021-10-21] MEDS: CLONIDINE 0.1MG TABLET PO SCH ×2 (09:00→17:00)
[2021-10-21] MEDS: AMLODIPINE 10MG TABLET PO SCH (09:00)
[2021-10-21] MEDS: OXYCODONE HCL 10MG TABLET SR 12HR PO SCH ×2 (09:00→21:16)
[2021-10-21 12:00] VITALS: BP 154/62
[2021-10-21 16:00] VITALS: BP 152/77
[2021-10-21 20:00] VITALS: BP 160/80
[2021-10-22] VITALS: BP 160/56
[2021-10-22 04:00] VITALS: BP 141/79
[2021-10-22] MEDS: HYDRALAZINE HCL 100MG TABLET PO SCH (06:00)
[2021-10-22] MEDS: INSULIN LISPRO 100 UNITS/ML SUBCUT SCH (07:38)
[2021-10-22] MEDS: BLOOD SUGAR DIAGNOSTIC STRIP TEST SCH (07:38)
[2021-10-22 08:00] VITALS: BP 152/72
[2021-10-22 09:00] VITALS: BP 152/72
[2021-10-22] MEDS: CLONIDINE 0.1MG TABLET PO SCH (09:00)
[2021-10-22] MEDS: OXYCODONE HCL 10MG TABLET SR 12HR PO SCH (09:00)
[2021-10-22] MEDS: AMLODIPINE 10MG TABLET PO SCH (09:00)
== END 2021-10-22 11:03 | disposition home health service (06) | DRG 380 ==
LOC: ER 20:10 → 6EST 10-16 00:23 → ENRESERV 10-16 07:37
PROVIDERS: ADMIT Internal Medicine; ATTEND Internal Medicine
PROC: 05HN33Z Insertion of Infusion Device into Left Internal Jugular Vein, Percutaneous Approach (ICD-10-PCS; principal; 2021-10-17)
PROC: B544ZZA Ultrasonography of Left Jugular Veins, Guidance (ICD-10-PCS; 2021-10-17)
DX: L89.613 Pressure ulcer of right heel, stage 3 (principal); E44.1 Mild protein-calorie malnutrition; E11.40 Type 2 diabetes mellitus with diabetic neuropathy, unspecified; D64.9 Anemia, unspecified; E03.9 Hypothyroidism, unspecified; E66.9 Obesity, unspecified; G89.29 Other chronic pain; I10 Essential (primary) hypertension; M16.11 Unilateral primary osteoarthritis, right hip; Z68.41 Body mass index [BMI] 40.0-44.9, adult; Z99.3 Dependence on wheelchair; Z88.0 Allergy status to penicillin; Z88.8 Allergy status to other drugs, medicaments and biological substances; Z79.899 Other long term (current) drug therapy; Z71.3 Dietary counseling and surveillance; Z89.432 Acquired absence of left foot
CPT/HCPCS: 36415; 36573; 71045; 73630; 80048; 80053; 80202; 82962; 85025; 85651; 86140; 86850; 86900; 93970; 99285; A6261; C1725; J1815; J1885; J1956; J2270; J3370

== ENCOUNTER 2021-12-30 19:12 | Inpatient (IN) | payer MEDICAID ==
[~2021-12-30] VITALS: Ht 157.5 cm; Wt 96.6 kg
[~2021-12-30 19:12] MED LIST changes: +LEVO-65 MT; -LIRA0.6P2 SUBCUT; -SULF-299 PO
[2021-12-30] MEDS ORDERED: ALBUTEROL (0.083%) 2.5MG/3ML NEB HHN STA (19:31)
[2021-12-30] MEDS ORDERED: IPRATROPIUM BROMIDE (0.02%) 0.5MG/2.5ML NEB HHN STA (19:31)
[2021-12-30 20:28] LABS: HEMATOCRIT. 31.1 % (36.0-48.0); HEMOGLOBIN. 10.2 g/dL (12.0-16.0); MEAN CORPUSCULAR HEMOGLOBIN 25.1 pg (28.0-32.0); MEAN CORPUSCULAR VOLUME 76.8 fL (81.0-99.0); MEAN PLATELET VOLUME 7.5 fl (7.4-10.4); PLATELET 364 x1000/uL (130-400); RED BLOOD CELL COUNT 4.05 mill/uL (4.2-5.4); RED CELL DISTRIBUTION WIDTH 18.7 % (11.6-14.6)
[2021-12-30 20:33] LABS: CHLORIDE 101 mEq/L (98-107)
[2021-12-30 20:44] LABS: ETHANOL BLOOD < 10 mg/dL
[2021-12-30] MEDS ORDERED: ASPIRIN 81MG TABLET PO ONE (21:15)
[2021-12-30] MEDS ORDERED: FUROSEMIDE 20MG/2ML VIAL IVP NR (21:45)
[2021-12-30 21:59] LABS: PLATELET ESTIMATE NORMAL
[2021-12-31] VITALS (7 sets, daily range): BP systolic 114–159; BP diastolic 58–75
[2021-12-31] MEDS ORDERED: ACETAMINOPHEN 325MG TABLET PO PRN ×2 (00:30)
[2021-12-31] MEDS ORDERED: GUAIFENESIN 200MG/10ML SUGAR FREE UDC PO PRN (00:30)
[2021-12-31] MEDS ORDERED: ATORVASTATIN CALCIUM 40MG TABLET PO SCH (00:30)
[2021-12-31] MEDS ORDERED: DIPHENHYDRAMINE 50MG/ML VIAL IV PRN (00:30)
[2021-12-31] MEDS ORDERED: DOCUSATE SODIUM 100MG CAPSULE PO PRN (00:30)
[2021-12-31] MEDS ORDERED: ONDANSETRON HCL 4MG/2ML INJ IV PRN (00:30)
[2021-12-31] MEDS ORDERED: NA PHOS,M-B/NA PHOS,DI-BA ENEMA 118ML PR PRN (00:30)
[2021-12-31] MEDS ORDERED: CLONIDINE 0.1MG TABLET PO PRN (00:30)
[2021-12-31] MEDS ORDERED: IPRATROPIUM/ALBUTEROL 0.5-3(2.5)MG/3ML NEB HHN PRN (00:30)
[2021-12-31] MEDS ORDERED: HYDROCODONE/ACETAMINOPHEN 5/325MG TABLET PO PRN (00:30)
[2021-12-31] MEDS ORDERED: MAGNESIUM/ALUMINUM HYDROXIDE/SIMETHICONE 30ML UDC PO PRN (00:30)
[2021-12-31] MEDS ORDERED: DEXTROSE 50% WATER 50ML SYRINGE IV PRN (00:45)
[2021-12-31] MEDS: AMLODIPINE 10MG TABLET PO SCH ×2 (01:39→08:52)
[2021-12-31] MEDS: HYDROCODONE/ACETAMINOPHEN 7.5/325MG TABLET PO PRN ×2 (01:39→06:55)
[2021-12-31] MEDS ORDERED: HYDR-4135 PO (02:09)
[2021-12-31] MEDS ORDERED: POLY17PO43 PO (02:09)
[2021-12-31] MEDS ORDERED: ARIP5TAB58 PO (02:09)
[2021-12-31] MEDS ORDERED: METH-773 PO (02:09)
[2021-12-31] MEDS ORDERED: ASCO500C18 PO (02:09)
[2021-12-31] MEDS ORDERED: METO-385 PO (02:09)
[2021-12-31] MEDS ORDERED: LEVOTHYROXINE SODIUM 100MCG TABLET PO SCH (06:40)
[2021-12-31] MEDS: INSULIN LISPRO 100 UNITS/ML SUBCUT SCH ×3 (06:47→18:40)
[2021-12-31] MEDS: PANTOPRAZOLE 40MG DR TABLET PO SCH (06:53)
[2021-12-31] MEDS: BLOOD SUGAR DIAGNOSTIC STRIP TEST SCH ×3 (06:53→17:38)
[2021-12-31] MEDS: GABAPENTIN 100MG CAPSULE PO SCH ×2 (06:53→13:42)
[2021-12-31 08:51] LABS: CHLORIDE 99 mEq/L (98-107)
[2021-12-31] MEDS ORDERED: ENOXAPARIN 40MG/0.4ML SYR SUBCUT SCH (09:00)
[2021-12-31] MEDS ORDERED: METOPROLOL SUCCINATE 50MG ER TABLET PO SCH ×2 (09:00)
[2021-12-31 09:04] LABS: PHOSPHORUS 5.2 mg/dL (2.5-4.9); TOTAL IRON BINDING CAPACITY 256 ug/dL (250-450)
[2021-12-31] MEDS ORDERED: ALBUTEROL 6.7GM HFA INHALER ORI PRN (12:00)
[2021-12-31] MEDS ORDERED: NALOXONE HCL 0.4MG/ML VIAL IV PRN (17:45)
[2021-12-31] MEDS ORDERED: ALBUTEROL 6.7GM HFA INHALER ORI SCH (17:45)
[2022-01-01] MEDS ORDERED: ENOXAPARIN 30MG/0.3ML SYR SUBCUT SCH (09:00)
== END 2021-12-31 20:50 | DRG 137 ==
LOC: ER 19:27 → 7EST 21:31 → ENRESERV 23:24
PROVIDERS: ADMIT Internal Medicine; ATTEND Internal Medicine
DX: U07.1 COVID-19 (principal); J96.01 Acute respiratory failure with hypoxia; E46 Unspecified protein-calorie malnutrition; I13.0 Hypertensive heart and chronic kidney disease with heart failure and stage 1 through stage 4 chronic kidney disease, or unspecified chronic kidney disease; E83.39 Other disorders of phosphorus metabolism; I50.30 Unspecified diastolic (congestive) heart failure; E11.22 Type 2 diabetes mellitus with diabetic chronic kidney disease; D50.9 Iron deficiency anemia, unspecified; E11.42 Type 2 diabetes mellitus with diabetic polyneuropathy; E11.610 Type 2 diabetes mellitus with diabetic neuropathic arthropathy; E03.9 Hypothyroidism, unspecified; Z60.2 Problems related to living alone; E66.9 Obesity, unspecified; G47.33 Obstructive sleep apnea (adult) (pediatric); G89.29 Other chronic pain; J45.909 Unspecified asthma, uncomplicated; M16.11 Unilateral primary osteoarthritis, right hip; N18.9 Chronic kidney disease, unspecified; Z28.310 Unvaccinated for COVID-19; Z68.39 Body mass index [BMI] 39.0-39.9, adult; Z79.4 Long term (current) use of insulin; Z79.899 Other long term (current) drug therapy; Z88.0 Allergy status to penicillin; Z88.8 Allergy status to other drugs, medicaments and biological substances; Z79.2 Long term (current) use of antibiotics; Z89.422 Acquired absence of other left toe(s); Z90.49 Acquired absence of other specified parts of digestive tract; Z98.49 Cataract extraction status, unspecified eye
CPT/HCPCS: 36415; 71045; 80048; 80053; 80320; 82728; 82962; 83036; 83540; 83550; 83605; 83615; 83735; 83880; 84100; 84484; 85025; 85379; 87426; 93005; 93970; 94640; 99285; C9803; J1650; J1815; J1940; G0480